=== PATIENT | female | born 1950 | race Caucasian/White ===

== ENCOUNTER → 2016-10-07 | Outpatient (CLI) | payer OTHER ==
[~2016-10-07] MED LIST: AMLO5 PO; APIX2.5 PO; APIX2.5T PO; APIX5TAB PO; BACT800T5 PO; CALC500C6 CHEW; CARV6.25 PO; CLON.5 PO; DILT60TA PO; DILT60TA33 PO; DRIS50002 PO; ERGO50000 PO; FERR325T PO; HYDR-3516 PO; LEVA750T PO; OXYGENTANK NAS.CANULA; PANT40TA3 PO; PRED20 PO; PROT40TA PO; SYMB160A INH; SYMB80AE INH; TUMS500C PO; VENTAER INH; Z.0.OXYGENDME NC
[2016-10-07 16:22] LABS: HEMOGLOBIN A1a 0.8 %; HEMOGLOBIN Ao 83.2 %; HEMOGLOBIN LA1C 2.5 %; HEMOGLOBIN P3 4.3 %
== END ==
LOC: CLAB 09:48
PROVIDERS: ATTEND Physician Assistant Medical
DX: E11.9 Type 2 diabetes mellitus without complications (principal)
CPT/HCPCS: 36415; 83036

== ENCOUNTER 2016-11-28 03:12 | Inpatient (IN) | payer MEDICAID, OTHER ==
[~2016-11-28] VITALS: Ht 157.5 cm; Wt 77.0 kg
[2016-11-28] VITALS (11 sets, daily range): BP systolic 122–190; BP diastolic 66–88; PULSE 88–121; RESP 14–23; TEMP 87.7–98.6; O2SAT 88–99
[~2016-11-28 03:12] MED LIST changes: -AMLO5 PO; -APIX2.5 PO; -APIX5TAB PO; -BACT800T5 PO; -CARV6.25 PO; -CLON.5 PO; -DILT60TA33 PO; -ERGO50000 PO; -FERR325T PO; -HYDR-3516 PO; -LEVA750T PO; -PANT40TA3 PO; -PRED20 PO; -PROT40TA PO; -SYMB160A INH; -SYMB80AE INH; -TUMS500C PO; -VENTAER INH; -Z.0.OXYGENDME NC
[2016-11-28] MEDS ORDERED: SODIUM CHLOR 0.9% 1000 ML INJ 1,000 ML IV SCH (04:02)
--- NOTE | 2016-11-28 04:09 | PD ---
HPI Chief Complaint: Bleeding Time Seen by Provider: 04:02 Travel History International Travel<30 days: No Contact w/Intl Traveler<30days: No Traveled to known affect area: No History of Present Illness HPI 66-year-old female presents to the emergency department for complaint of 3 days of rectal bleeding. Patient denies any abdominal pain. Patient has felt lightheaded. Patient has chronic shortness of breath due to COPD and is on chronic supplemental oxygen. Patient also has history of atrial fibrillation and is prescribed eloquent was. Patient is unable to identify exacerbating or alleviating factors except that she notes that when she does go to the bathroom that is when she notices a large amount of red blood per rectum. Patient denies any hematuria. Patient's had no hematemesis or coffee-ground emesis. No chest pain. Patient states no previous history of GI bleed. Patient does not take aspirin products or NSAIDs. PFSH Past Medical History Narrative Medical Atrial fibrillation renal insufficiency COPD diabetes kidney stones hysterectomy no tobacco use nursing notes reviewed Hx Anticoagulant Therapy: Yes Arthritis: Yes ([place] hands) Asthma: No Autoimmune Disease: No Cancer: No Cardiovascular Problems: Yes COPD: Yes Diabetes: Yes Patient Takes Glucophage: No Diminished Hearing: Yes (tejon) Endocrine: Yes Gastrointestinal Disorders: Yes GERD: Yes Genitourinary: Yes Hiatal Hernia: No Immune Disorder: No Kidney Stones: Yes (25 yrs ago) Musculoskeletal: Yes Neurologic: No Psychiatric: No Reproductive: No Respiratory: Yes (COPD) Immunizations Current: Yes Renal Failure: No Sleep Apnea: No Ulcer: No Past Surgical History Hysterectomy: Yes Tonsillectomy: Yes Social History Alcohol Use: No Tobacco Use: No Substance Use: No Allergies-Medications (Allergen,Severity, Reaction): Coded Allergies: Metformin (Verified Allergy, Intermediate, 11/28/16) Reported Meds & Prescriptions Reported Meds & Active Scripts Active Diltiazem (Diltiazem HCl) 60 Mg Tab 60 Mg PO QID Eliquis (Apixaban) 2.5 Mg Tab 2.5 Mg PO BID Reported Drisdol (Ergocalciferol) 50,000 Unit Cap 50,000 Units PO Q7D Oxygen tank (Oxygen) 1 Ea Tank 2 Liter STEPHANI.CANULA CONTINUOUS Oxygen Concentrator Portable Gaseous 2 L/min via Nasal Cannula Continuous For 99 months Calcium Carbonate 500 Mg Chew 500 Mg CHEW TID 500 mg calcium carbonate (200 mg elemental calcium) Review of Systems Except as stated in HPI: all other systems reviewed are Neg General / Constitutional: No: Fever, Chills HENT: No: Congestion Cardiovascular: No: Chest Pain or Discomfort Respiratory: Positive: Shortness of Breath Gastrointestinal: No: Vomiting, Diarrhea, Abdominal Pain Genitourinary: No: Dysuria, Hematuria Musculoskeletal: No: Myalgias, Arthralgias Skin: No Rash Neurologic: Positive: Weakness Psychiatric: Positive: Anxiety Hematologic/Lymphatic: Positive: Easy Bruising Physical Exam Narrative GENERAL: Well-developed well-nourished female in no acute distress no respiratory distress SKIN: Warm and dry. HEAD: Atraumatic. Normocephalic. EYES: Pupils equal and round. No scleral icterus. No injection or drainage. Mild conjunctival pallor ENT: No nasal bleeding or discharge. Mucous membranes pink and moist. NECK: Trachea midline. No JVD. CARDIOVASCULAR: Increased Regular rate and rhythm. RESPIRATORY: No accessory muscle use. Clear to auscultation. Breath sounds equal bilaterally. GASTROINTESTINAL: Abdomen soft, non-tender, nondistended. Hepatic and splenic margins not palpable. Rectal exam: No sphincter tone maroon stool Hemoccult performed MUSCULOSKELETAL: Extremities without clubbing, cyanosis, or edema. No obvious deformities. NEUROLOGICAL: Awake and alert. No obvious cranial nerve deficits. Motor grossly within normal limits. Five out of 5 muscle strength in the arms and legs. Normal speech. PSYCHIATRIC: Appropriate mood and affect; insight and judgment normal. Data Data Last Documented VS Vital Signs Date Time Temp Pulse Resp B/P Pulse Ox O2 Delivery O2 Flow Rate FiO2 11/28/16 05:00 94 18 160/78 96 Room Air 11/28/16 03:44 2 11/28/16 03:16 98.1 Orders Complete Blood Count With Diff (11/28/16 04:02) Comprehensive Metabolic Panel (11/28/16 04:02) Lipase (11/28/16 04:02) Prothrombin Time / Inr (Pt) (11/28/16 04:02) Act Partial Throm Time (Ptt) (11/28/16 04:02) Urinalysis - C+S If Indicated (11/28/16 04:02) Type And Screen (11/28/16 04:02) Chest, Single Ap (11/28/16 04:02) Ecg Monitoring (11/28/16 04:02) Iv Access Insert/Monitor (11/28/16 04:02) Oximetry (11/28/16 04:02) Ondansetron Inj (Zofran Inj) (11/28/16 04:15) Sodium Chlor 0.9% 1000 Ml Inj (Ns 1000 M (11/28/16 04:02) Sodium Chloride 0.9% Flush (Ns Flush) (11/28/16 04:15) Electrocardiogram (11/28/16 ) Pantoprazole Inj (Protonix Inj) (11/28/16 04:15) Admit Order (Ed Use Only) (11/28/16 ) ^ Saline Lock (11/28/16 05:19) Resp Oxygen Stephani C Titrat 1-4 L (11/28/16 ) ^ Notify Dr: Other (11/28/16 05:19) Sodium Chloride 0.9% Flush (Ns Flush) (11/28/16 09:00) Sodium Chloride 0.9% Flush (Ns Flush) (11/28/16 05:30) Consult Gastroenterology (11/28/16 ) Labs Laboratory Tests Test 11/28/16 04:25 White Blood Count 18.0 TH/MM3 Red Blood Count 3.48 MIL/MM3 Hemoglobin 10.5 GM/DL Hematocrit 31.4 % Mean Corpuscular Volume 90.3 FL Mean Corpuscular Hemoglobin 30.0 PG Mean Corpuscular Hemoglobin 33.2 % Concent Red Cell Distribution Width 12.8 % Platelet Count 285 TH/MM3 Mean Platelet Volume 7.7 FL Neutrophils (%) (Auto) 74.2 % Lymphocytes (%) (Auto) 17.8 % Monocytes (%) (Auto) 6.4 % Eosinophils (%) (Auto) 1.0 % Basophils (%) (Auto) 0.6 % Neutrophils # (Auto) 13.3 TH/MM3 Lymphocytes # (Auto) 3.2 TH/MM3 Monocytes # (Auto) 1.2 TH/MM3 Eosinophils # (Auto) 0.2 TH/MM3 Basophils # (Auto) 0.1 TH/MM3 CBC Comment DIFF FINAL Differential Comment Prothrombin Time 10.6 SEC Prothromb Time International 1.0 RATIO Ratio Activated Partial 25.4 SEC Thromboplast Time Sodium Level 139 MEQ/L Potassium Level 3.4 MEQ/L Chloride Level 92 MEQ/L Carbon Dioxide Level 37.1 MEQ/L Anion Gap 10 MEQ/L Blood Urea Nitrogen 22 MG/DL Creatinine 1.25 MG/DL Estimat Glomerular Filtration 43 ML/MIN Rate Random Glucose 199 MG/DL Calcium Level 8.4 MG/DL Total Bilirubin 0.2 MG/DL Aspartate Amino Transf 11 U/L (AST/SGOT) Alanine Aminotransferase 24 U/L (ALT/SGPT) Alkaline Phosphatase 97 U/L Total Protein 6.6 GM/DL Albumin 3.2 GM/DL Lipase 67 U/L Blood Type O POSITIVE Antibody Screen NEGATIVE Blood Bank Comment MDM Medical Decision Making Medical Screen Exam Complete: Yes Emergency Medical Condition: Yes Medical Record Reviewed: Yes Interpretation(s) EKG: Sinus tachycardia rate [address] elevation or injury pattern change or ectopy noted Vital Signs Date Time Temp Pulse Resp B/P Pulse Ox O2 Delivery O2 Flow Rate FiO2 11/28/16 03:44 116 23 122/66 95 Nasal Cannula 2 11/28/16 03:40 115 18 95 Nasal Cannula 2 11/28/16 03:16 98.1 121 20 177/81 88 CBC & BMP Diagram 11/28/16 04:25 Differential Diagnosis Upper GI bleed lower GI bleed Eliquis yet related bleed anemia Narrative Course GI bleed due to possible nonsteroidal exposure and cough medicine on a liquid Critical Care Narrative Aggregate critical care time was 35 minutes. Time to perform other separately billable procedures was not included in the critical care time. My time did not include minutes spent treating any other patients simultaneously or on activities that did not directly contribute to the patient's treatment. The services I provided to this patient were to treat and/or prevent clinically significant deterioration that could result in: severe anemia, hemorrhagic shock , I provided critical care services requiring my management, as noted below: Chart data review, documentation time, medication orders and management, vital sign assessments/reviewing monitor data, ordering and reviewing lab tests, ordering and interpreting/reviewing x-rays and diagnostic studies, care of the patient and discussion of the patient with the admitting physicians. Physician Communication Physician Communication Call placed to GI --Dr Yip -- will see in consultation; call placed to [facility] service dicussed with Dr Bear --admit to M/S floor Diagnosis Primary Impression: GI bleed Qualified Code: K92.2 - Gastrointestinal hemorrhage, unspecified gastrointestinal hemorrhage type Admitting Information Admitting Physician Requests: Admit Claire Gonzalez MD Nov 28, 2016 04:08
[2016-11-28] MEDS ORDERED: ONDANSETRON HCL 4 MG/2 ML VIAL IVP ONE (04:15)
[2016-11-28] MEDS ORDERED: PANTOPRAZOLE SODIUM 40 MG VIAL IV PUSH ONE (04:15)
[2016-11-28] MEDS ORDERED: SODIUM CHLORIDE 0.9% FLUSH 5 ML FLUSH IVF PRN ×2 (04:15→05:30)
--- NOTE | 2016-11-28 04:30 | RADRPT ---
EXAM DATE/TIME: 11/28/2016 04:15 [place] COMPARISON: CT PULMONARY ANGIOGRAM, January 22, 2016, 15:05. CHEST SINGLE AP, January 27, 2016, 13:29. INDICATIONS : Syncope MEDICAL HISTORY : Chronic obstructive pulmonary disease. Hypertension ARF. Hyperkalemia. Diabetes SURGICAL HISTORY : Tonsillectomy. ENCOUNTER: Initial ACUITY: 1 day PAIN SCORE: 2/10 LOCATION: Bilateral chest FINDINGS: Hyperinflation and attenuated lung markings are again seen consistent with emphysema. There is a kelli t nodule in the left upper lungs measuring 1.5 cm which likely corresponds to the spiculated mass see n on the previous CT examination. There is mild cardiomegaly. No consolidation or effusion. CONCLUSION: Left upper lung zone nodule likely corresponds to the spiculated nodule seen on a prior CT examinatio n. Emphysema. No acute findings. Abdirizak Burns MD on November 28, 2016 at 4:27 Board Certified Radiologist. This report was verified electronically.
[2016-11-28 04:37] LABS: AUTOMATED NEUTROPHIL # 13.3 TH/MM3 (1.8-7.7); BASOPHIL # 0.1 TH/MM3 (0-0.2); BASOPHIL % 0.6 % (0.0-2.0); EOSINOPHIL # 0.2 TH/MM3 (0-0.4); HEMATOCRIT 31.4 % (35.0-46.0); HEMO FLAGS DIFF FINAL; LYMPH % 17.8 % (9.0-44.0); LYMPHOCYTE # 3.2 TH/MM3 (1.0-4.8); MEAN CELL VOLUME 90.3 FL (80.0-100.0); MEAN CORPUSCULAR HGB CONC 33.2 % (32.0-36.0); MONO % 6.4 % (0.0-8.0); NEUT % 74.2 % (16.0-70.0); PLATELET COUNT 285 TH/MM3 (150-450); RED BLOOD COUNT 3.48 MIL/MM3 (4.00-5.30); RED CELL DISTRIBUTION WIDTH 12.8 % (11.6-17.2)
[2016-11-28 05:03] LABS: ALT (GPT) 24 U/L (10-53); ANION GAP 10 MEQ/L (5-15); AST (GOT) 11 U/L (15-37); BICARBONATE 37.1 MEQ/L (21.0-32.0); BLOOD UREA NITROGEN 22 MG/DL (7-18); CHLORIDE 92 MEQ/L (98-107); GLOMERULAR FILTRATION RATE 43 ML/MIN (>89); POTASSIUM 3.4 MEQ/L (3.5-5.1); SODIUM (NA) 139 MEQ/L (136-145)
[2016-11-28 05:05] LABS: ALKALINE PHOSPHATASE 97 U/L (45-117); TOTAL BILIRUBIN ADULT 0.2 MG/DL (0.2-1.0)
[2016-11-28 05:10] LABS: APTT (PATIENT) 25.4 SEC (24.3-30.1); PROTHROMBIN TIME - PATIENT 10.6 SEC (9.8-11.6)
[2016-11-28] MEDS ORDERED: MORPHINE SULFATE 4 MG/ML INJ IV PRN (05:45)
[2016-11-28] MEDS ORDERED: ACETAMINOPHEN 325 MG TAB PO PRN (05:45)
[2016-11-28] MEDS ORDERED: ONDANSETRON HCL 4 MG/2 ML VIAL IVP PRN (05:45)
[2016-11-28] MEDS ORDERED: BISACODYL 10 MG SUPP PR PRN (05:45)
[2016-11-28] MEDS ORDERED: SODIUM CHLORIDE 0.9% FLUSH 5 ML FLUSH FLUSH PRN (05:45)
--- NOTE | 2016-11-28 05:53 | HHI.HP ---
[facility] No Primary Care Physician Admission Diagnosis GI bleed on Eliquis; h/o afib; h/o copd; h/o renal insufficiency Diagnoses: (1) GI bleed Diagnosis: Principal (2) A-fib Diagnosis: Principal (3) Renal insufficiency Diagnosis: Principal (4) COPD (chronic obstructive pulmonary disease) Diagnosis: Principal Travel History International Travel<30 Days: No Contact w/Intl Traveler <30 Da: No Traveled to Known Affected Are: No History of Present Illness This is a 66-year-old female with a PMH of COPD, O2 Dependent, A-fib on Eliquis and HTN who presented to the ER w/ complaints of rectal bleeding. States symptoms have been intermittent x3 days, however today had persistent rectal bleeding. On Eliquis as above for A-fib. Denies melena or abdominal pain. On arrival, BP 177/81, HR 121, O2 sat 88% on RA, Afebrile. Currently BP 122/66, HR 116, O2 sat 95% on 2L NC. WBC 18. Hgb 10.5, previously 14.4 on 02/25/16. Hemoccult +. K+ 3.4. Creatinine 1.25, previously 1.15 on 04/23/16. CXR with left upper lung nodule seen on previous CT, COPD. Dr. Haas consulted by ER physician, will evaluate for likely intervention w/ EGD/Colonoscopy. Review of Systems ROS: 14 point review of systems otherwise negative. Past Family Social History Past Medical History PMH: COPD, O2 Dependent, A-fib on Eliquis and HTN Past Surgical History PAST SURGICAL HISTORY: Hysterectomy, Tonsillectomy Allergies: Coded Allergies: Metformin (Verified Allergy, Intermediate, 11/28/16) Family History PAST FAMILY HISTORY: Reviewed. No h/o DM or CAD Social History PAST SOCIAL HISTORY: Negative for alcohol, tobacco or drugs. Physical Exam Vital Signs Vital Signs Date Time Temp Pulse Resp B/P Pulse Ox O2 Delivery O2 Flow Rate FiO2 11/28/16 03:44 116 23 122/66 95 Nasal Cannula 2 11/28/16 03:40 115 18 95 Nasal Cannula 2 11/28/16 03:16 98.1 121 20 177/81 88 Physical Exam PE: GENERAL: Pleasant middle-aged female in no acute distress. HEENT: PERRLA, EOMI. No scleral icterus or conjunctival pallor. No lid lag or facial droop. CARDIOVASCULAR: Regular rate and rhythm. No obvious murmurs to auscultation. No chest tenderness to palpation. RESPIRATORY: No obvious rhonchi or wheezing. Clear to auscultation. Breath sounds equal bilaterally. GASTROINTESTINAL: Abdomen soft, non-tender, nondistended. BS normal. MUSCULOSKELETAL: Extremities without clubbing, cyanosis, or edema. No obvious deformities. NEUROLOGICAL: Awake, alert and oriented x4. No focal neurologic deficits. Moving both upper and lower extremities spontaneously. Laboratory Laboratory Tests Test 11/28/16 04:25 White Blood Count 18.0 Red Blood Count 3.48 Hemoglobin 10.5 Hematocrit 31.4 Mean Corpuscular Volume 90.3 Mean Corpuscular Hemoglobin 30.0 Mean Corpuscular Hemoglobin 33.2 Concent Red Cell Distribution Width 12.8 Platelet Count 285 Mean Platelet Volume 7.7 Neutrophils (%) (Auto) 74.2 Lymphocytes (%) (Auto) 17.8 Monocytes (%) (Auto) 6.4 Eosinophils (%) (Auto) 1.0 Basophils (%) (Auto) 0.6 Neutrophils # (Auto) 13.3 Lymphocytes # (Auto) 3.2 Monocytes # (Auto) 1.2 Eosinophils # (Auto) 0.2 Basophils # (Auto) 0.1 CBC Comment DIFF FINAL Differential Comment Prothrombin Time 10.6 Prothromb Time International 1.0 Ratio Activated Partial 25.4 Thromboplast Time Sodium Level 139 Potassium Level 3.4 Chloride Level 92 Carbon Dioxide Level 37.1 Anion Gap 10 Blood Urea Nitrogen 22 Creatinine 1.25 Estimat Glomerular Filtration 43 Rate Random Glucose 199 Calcium Level 8.4 Total Bilirubin 0.2 Aspartate Amino Transf 11 (AST/SGOT) Alanine Aminotransferase 24 (ALT/SGPT) Alkaline Phosphatase 97 Total Protein 6.6 Albumin 3.2 Lipase 67 Blood Type O POSITIVE Antibody Screen NEGATIVE Blood Bank Comment Result Diagram: 11/28/1642411/28/16424 Assessment and Plan Problem List: (1) GI bleed ICD Code: K92.2 Status: Acute (2) A-fib ICD Code: I48.91 Status: Acute (3) Renal insufficiency ICD Code: N28.9 Status: Acute (4) COPD (chronic obstructive pulmonary disease) ICD Code: J44.9 Status: Acute Assessment and Plan A/P: 1. GI Bleed: acute onset of rectal bleeding x4 days, Hemoccult +, maroon stool on exam, Hgb 10.5, previously 14.4 on 02/25/16. Dr. Haas consulted by ER physician, will evaluate in am for likely intervention. Hemodynamically stable. Repeat Hgb/Hct. Telemetry. 2. A-fib: Chronic. On Eliquis, will hold for acute GI Bleed. Resume home Diltiazem. 3. COPD: Chronic Respiratory Failure, O2 Dependent. Stable. Continue O2. DuoNeb prn as needed. 4. Renal Insufficiency: Chronic. Creatinine 1.25, previous and 1.15 on . U/a pending. IVF for hydration, repeat labs in am. 5. DVT Prophylaxis: Pharmacologic contraindication in light of GI Bleed. 6. Social work for d/c planning as needed. 7. Case discussed w/ ER physician at length. Physician Certification 2 Midnight Certification Type: Admission for Inpatient Services Order for Inpatient Services The services are ordered in accordance with Medicare regulations or non- Medicare payer requirements, as applicable. In the case of services not specified as inpatient-only, they are appropriately provided as inpatient services in accordance with the 2-midnight benchmark. Estimated LOS (days): 2 days is the estimated time the patient will need to remain in the hospital, assuming treatment plan goals are met and no additional complications. Post-Hospital Plan: Not yet determined Problem Qualifiers (1) GI bleed: Qualified Code: K92.2 - Gastrointestinal hemorrhage, unspecified gastrointestinal hemorrhage type Luciana Bear MD Nov 28, 2016 05:53
[2016-11-28] MEDS: SODIUM CHLOR 0.9% 1000 ML INJ 1,000 ML IV SCH (06:46)
[2016-11-28 07:40] LABS: BACTERIA, URINE MANY /hpf; BLOOD, URINE LARGE (NEG); COMMENT (UR) CULTURE INDICATED; CULTURE IF INDICATED CULTURE INDICATED; GLUCOSE,URINE NEG (NEG); HYALINE CAST, URINE 7 /lpf (RARE); KETONE, URINE NEG (NEG); NITRITE,URINE NEG (NEG); SQUAMOUS EPITHELIAL CELL URINE 12 /hpf (0-5); TRANSITIONAL EPI CELLS, URINE 1 /hpf; URINE COLOR YELLOW (YELLW/STRAW)
[2016-11-28] MEDS: SODIUM CHLORIDE 0.9% FLUSH 5 ML FLUSH FLUSH SCH ×2 (09:00→20:27)
[2016-11-28] MEDS ORDERED: SODIUM CHLORIDE 0.9% FLUSH 5 ML FLUSH IVF SCH (09:00)
[2016-11-28] MEDS: DILTIAZEM HCL 60 MG TAB PO SCH ×4 (10:28→20:26)
--- NOTE | 2016-11-28 14:34 | EKG ---
Date Performed: 11/28/2016 Time Performed: 07:10:06 PTAGE: 66 years EKG: SINUS TACHYCARDIA WITH OCCASIONAL SUPRAVENTRICULAR PREMATURE COMPLEXES NONSPECIFIC ST & T-[address] AVE ABNORMALITY POSSIBLE RIGHT ATRIAL ABNORMALITY ABNORMAL RHYTHM ECG PREVIOUS TRACING : 02/24/2016 20.19 Compared to previous tracing, nonspecific ST/T abnormality is now evident, PACs are now present. DOCTOR: Saul Porras Interpretating Date/Time 11/28/2016 14:32:15
--- NOTE | 2016-11-28 17:08 | PD.CONS ---
HPI History of Present Illness This is a 66 year old female who came to the ER for evaluation of rectal bleeding. She has a hx of COPD and is on O2 2.5L via n/c. She also has a hx of atrial fibrillation and takes Eliquis for anticoagulation. She started having rectal bleeding about 3 days ago. She reports a large amount of bright red blood both mixed within the stool and also sometimes independently from stool. She states that she has had several episodes per day for the last 3 days. There are no aggravating or alleviating factors. She denies any constipation, diarrhea, or rectal pain. She does have some mild nausea without vomiting. She does not have any abdominal pain. She has never had any GI bleeding in the past. She denies any hx of PUD or known diverticulosis. She has never had an egd/colonoscopy in the past. There is no family hx of esophageal, gastric, or colorectal cancer. PFSH Past Medical History COPD, O2 Dependent on 2.5 L at home A-fib on Eliquis HTN Past Surgical History Hysterectomy Tonsillectomy Coded Allergies: Metformin (Verified Allergy, Intermediate, 11/28/16) Medications Allergies Coded Allergies Type Severity Reaction Last Updated Verified Metformin Allergy Intermediate 11/28/16 Yes Active Scripts Medications Dose Route/Sig Days Date Category Dose Instructions Drisdol (Ergocalciferol) 50,000 Unit Cap 50,000 Units PO Q7D 11/04/16 Reported Oxygen tank (Oxygen) 1 Ea Tank 2 Liter STEPHANI.CANULA CONTINUOUS 11/04/16 Reported Oxygen Concentrator Portable Gaseous 2 L/min via Nasal Cannula Continuous For 99 months Calcium Carbonate 500 Mg Chew 500 Mg CHEW TID 11/04/16 Reported 500 mg calcium carbonate (200 mg elemental calcium) Diltiazem (Diltiazem HCl) 60 Mg Tab 60 Mg PO QID 10/29/16 Rx Eliquis (Apixaban) 2.5 Mg Tab 2.5 Mg PO BID 09/03/16 Rx Family History Denies any family hx of esophageal, gastric, or colorectal cancer. Social History Quit smoking 3 years ago, prior to that smoked 1-2 PPD x ~30 years. No ETOH. Review of Systems Constitutional: DENIES: Fatigue, Weight loss, Change in appetite Respiratory: COMPLAINS OF: Shortness of breath, DENIES: Cough Cardiovascular: DENIES: Chest pain Gastrointestinal: COMPLAINS OF: Bloody stools, Nausea, DENIES: Abdominal pain , Black stools, Constipation, Diarrhea, Vomiting, Swelling of Abdomen, Hematemesis Integumentary: DENIES: Abnormal pigmentation Hematologic/lymphatic: DENIES: Bruising Neurologic: DENIES: Headache Psychiatric: DENIES: Confusion GI Exam Vitals I&O Vital Signs Date Time Temp Pulse Resp B/P Pulse Ox O2 Delivery O2 Flow Rate FiO2 11/28/16 16:15 98.1 107 20 190/88 91 11/28/16 12:05 98.6 88 16 153/70 90 11/28/16 09:13 87.7 112 14 135/87 95 11/28/16 06:50 94 18 173/78 98 Room Air 11/28/16 05:40 99 Nasal Cannula 2.00 11/28/16 05:00 94 18 160/78 96 Room Air 11/28/16 03:44 116 23 122/66 95 Nasal Cannula 2 11/28/16 03:40 115 18 95 Nasal Cannula 2 11/28/16 03:16 98.1 121 20 177/81 88 Imaging Last Impressions Chest X-Ray 11/28/16 0402 Signed Impressions: Service Date/Time: Monday, November 28, 2016 04:15 - CONCLUSION: Left upper lung zone nodule likely corresponds to the spiculated nodule seen on a prior CT examination. Emphysema. No acute findings. Abdirizak Burns MD Laboratory Test 11/28/16 11/28/16 04:25 07:00 White Blood Count 18.0 TH/MM3 Red Blood Count 3.48 MIL/MM3 Hemoglobin 10.5 GM/DL Hematocrit 31.4 % Mean Corpuscular Volume 90.3 FL Mean Corpuscular Hemoglobin 30.0 PG Mean Corpuscular Hemoglobin 33.2 % Concent Red Cell Distribution Width 12.8 % Platelet Count 285 TH/MM3 Mean Platelet Volume 7.7 FL Neutrophils (%) (Auto) 74.2 % Lymphocytes (%) (Auto) 17.8 % Monocytes (%) (Auto) 6.4 % Eosinophils (%) (Auto) 1.0 % Basophils (%) (Auto) 0.6 % Neutrophils # (Auto) 13.3 TH/MM3 Lymphocytes # (Auto) 3.2 TH/MM3 Monocytes # (Auto) 1.2 TH/MM3 Eosinophils # (Auto) 0.2 TH/MM3 Basophils # (Auto) 0.1 TH/MM3 CBC Comment DIFF FINAL Differential Comment Prothrombin Time 10.6 SEC Prothromb Time International 1.0 RATIO Ratio Activated Partial 25.4 SEC Thromboplast Time Sodium Level 139 MEQ/L Potassium Level 3.4 MEQ/L Chloride Level 92 MEQ/L Carbon Dioxide Level 37.1 MEQ/L Anion Gap 10 MEQ/L Blood Urea Nitrogen 22 MG/DL Creatinine 1.25 MG/DL Estimat Glomerular Filtration 43 ML/MIN Rate Random Glucose 199 MG/DL Calcium Level 8.4 MG/DL Total Bilirubin 0.2 MG/DL Aspartate Amino Transf 11 U/L (AST/SGOT) Alanine Aminotransferase 24 U/L (ALT/SGPT) Alkaline Phosphatase 97 U/L Total Protein 6.6 GM/DL Albumin 3.2 GM/DL Lipase 67 U/L Blood Type O POSITIVE Antibody Screen NEGATIVE Blood Bank Comment Urine Color YELLOW Urine Turbidity HAZY Urine pH 6.0 Urine Specific [place] 1.015 Urine Protein 30 mg/dL Urine Glucose (UA) NEG mg/dL Urine Ketones NEG mg/dL Urine Occult Blood LARGE Urine Nitrite NEG Urine Bilirubin NEG Urine Urobilinogen LESS THAN 2.0 MG/DL Urine Leukocyte Esterase LARGE Urine RBC 6 /hpf Urine WBC 65 /hpf Urine Squamous Epithelial 12 /hpf Cells Urine Transitional Epithelial 1 /hpf Cells Urine Bacteria MANY /hpf Urine Hyaline Casts 7 /lpf Microscopic Urinalysis Comment CULTURE INDICATED Date/Time Procedure Status Source Growth 11/28/16 07:00 Urine Culture Received Urine Random Urine Pending Physical Examination HEENT: Normocephalic; atraumatic; no jaundice. Throat is clear. NECK: Neck is supple, no JVD, no lymphadenopathy. CHEST: CTA, diminished. CARDIAC: Irregular ABDOMEN: Soft, nondistended, nontender; no hepatosplenomegaly; bowel sounds are present in all four quadrants. EXTREMITIES: No clubbing, cyanosis, or edema. SKIN: Normal; no rash; no jaundice. F[employer]: No focal deficits; alert and oriented times three. Assessment and Plan Plan ASSESSMENT: - GIB with BRBPR, both mixed within the stool and independent from stool x 3 days. Mild nausea, but no other GI symptoms such as pain, diarrhea, constipation. No prior hx of GIB or PUD. Does not take NSAIDs. Is on Eliquis at home for Atrial fibrillation. HH 10.5/31.4. Never had an EGD/Colonoscopy - Anemia, acute blood loss. HH 10.5/31.4. - Leukocytosis. WBC 18.0. Denies any abdominal pain. - Nausea, mild, no vomiting. Add PPI - Atrial fibrillation, Eliquis on hold - HTN, COPD per primary. Of note patient is on O2 2.5 L via n/c at home PLAN: - Plan for egd/colonoscopy in am - Obtain consents - Clear liquids tomorrow - NPO after MN Wednesday night - Golytely prep tomorrow - Add PPI - Hold Eliquis - Monitor HH - Transfuse as necessary - CBC in am - Supportive care - Further recommendations to follow based on results of above - Pt seen and examined by Dr. Haas and myself and this note is written on his behalf eBtty Cook Nov 28, 2016 17:07
[2016-11-28] MEDS: PANTOPRAZOLE SODIUM 40 MG VIAL IV PUSH SCH (18:09)
[2016-11-29] VITALS (9 sets, daily range): BP systolic 138–192; BP diastolic 67–90; PULSE 74–102; RESP 18–20; TEMP 97.6–98.8; O2SAT 92–99
[2016-11-29] MEDS: SODIUM CHLOR 0.9% 1000 ML INJ 1,000 ML IV SCH ×4 (01:39→21:39)
[2016-11-29 08:07] LABS: AUTOMATED NEUTROPHIL # 8.3 TH/MM3 (1.8-7.7); BASOPHIL # 0.1 TH/MM3 (0-0.2); BASOPHIL % 0.4 % (0.0-2.0); EOSINOPHIL # 0.3 TH/MM3 (0-0.4); EOSINOPHIL % 2.2 % (0.0-4.0); HEMATOCRIT 29.5 % (35.0-46.0); HEMO FLAGS DIFF FINAL; LYMPH % 29.4 % (9.0-44.0); MEAN CELL VOLUME 90.7 FL (80.0-100.0); MEAN CORPUSCULAR HEMOGLOBIN 30.2 PG (27.0-34.0); MEAN CORPUSCULAR HGB CONC 33.4 % (32.0-36.0); MONO % 7.1 % (0.0-8.0); NEUT % 60.9 % (16.0-70.0); PLATELET COUNT 267 TH/MM3 (150-450); RED BLOOD COUNT 3.25 MIL/MM3 (4.00-5.30); RED CELL DISTRIBUTION WIDTH 12.8 % (11.6-17.2); WHITE BLOOD COUNT 13.6 TH/MM3 (4.0-11.0)
[2016-11-29 08:32] LABS: ALKALINE PHOSPHATASE 92 U/L (45-117); ALT (GPT) 21 U/L (10-53); ANION GAP 9 MEQ/L (5-15); AST (GOT) 15 U/L (15-37); BICARBONATE 36.4 MEQ/L (21.0-32.0); BLOOD UREA NITROGEN 11 MG/DL (7-18); CHLORIDE 94 MEQ/L (98-107); GLOMERULAR FILTRATION RATE 73 ML/MIN (>89); SODIUM (NA) 139 MEQ/L (136-145); TOTAL BILIRUBIN ADULT 0.5 MG/DL (0.2-1.0)
[2016-11-29 08:34] LABS: POTASSIUM 2.6 MEQ/L (3.5-5.1)
[2016-11-29] MEDS: SODIUM CHLORIDE 0.9% FLUSH 5 ML FLUSH FLUSH SCH ×2 (09:00→20:46)
[2016-11-29] MEDS: DILTIAZEM HCL 60 MG TAB PO SCH ×4 (09:12→20:45)
--- NOTE | 2016-11-29 10:09 | HHI.PR ---
Subjective Remarks Follow up for GI bleed, hypokalemia. Ms. Snyder is doing well. Eating her breakfast. No acute concerns. No fever, chills. Objective Vitals Vital Signs Date Time Temp Pulse Resp B/P Pulse Ox O2 Delivery O2 Flow Rate FiO2 11/29/16 08:07 97.6 102 18 93 11/29/16 08:00 170/70 11/29/16 07:18 95 Nasal Cannula 1.00 11/29/16 04:13 98.0 89 20 154/90 97 11/29/16 00:18 98.0 100 20 192/84 95 11/28/16 21:02 97.4 102 20 168/76 95 11/28/16 20:00 106 11/28/16 16:15 98.1 107 20 190/88 91 11/28/16 12:05 98.6 88 16 153/70 90 Result Diagram: 11/29/16 0714 11/29/16 0714 Imaging Last Impressions Chest X-Ray 11/28/16 0402 Signed Impressions: Service Date/Time: Monday, November 28, 2016 04:15 - CONCLUSION: Left upper lung zone nodule likely corresponds to the spiculated nodule seen on a prior CT examination. Emphysema. No acute findings. Abdirizak Burns MD Objective Remarks GENERAL: AOX 3, NAD SKIN: Warm and dry. HEAD: Normocephalic. EYES: No scleral icterus. No injection or drainage. NECK: Supple, trachea midline. No JVD or lymphadenopathy. CARDIOVASCULAR: Irreg Irreg with tachycardia without murmurs, gallops, or rubs. RESPIRATORY: Breath sounds equal bilaterally. No accessory muscle use. GASTROINTESTINAL: Abdomen soft, non-tender, nondistended. MUSCULOSKELETAL: No cyanosis, or edema. BACK: Nontender without obvious deformity. No CVA tenderness. Procedures None. A/P Problem List: (1) GI bleed ICD Code: K92.2 Status: Acute (2) A-fib ICD Code: I48.91 Status: Acute (3) HTN (hypertension) ICD Code: I10 Status: Acute (4) JEFF (acute kidney injury) ICD Code: N17.9 Status: Acute (5) COPD (chronic obstructive pulmonary disease) ICD Code: J44.9 Status: Acute Assessment and Plan Ms. Snyder is a 66-year-old female with a PMH of COPD, O2 Dependent, A-fib on Eliquis and HTN who presented to the ER on 11/28/2016 w/ complaints of rectal bleeding. Her symptoms have been intermittent x3 days prior to this hospitalization. Hemoccult +, maroon stool on exam, Hgb 10.5, previously 14.4 on 02/25/16. Apixaban held due to GI bleed. GI consulted. - GI bleed - Hgb 10.5 --> 9.8. - EGD/Colonoscopy planned for 11/30/2016. - If negative and patient is stable, we could potentially discharge patient on 11/30/2016. - Chronic Atrial fibrillation - [id number] score is probably 2 (female, HTN). Patient was not on any BP meds at home, however. - Apixaban on hold. - Currently heart rate is around 100. Continue Cardizem 60mg QID. - Will start Carvedilol 6.25mg Q12hrs for both Afib and BP. - Hypertension - Will start Amlodipine 5mg Qday and Carvedilol 6.25mg BID - May need to adjust Amlodipine. - Acute kidney injury - resolved. Creatinine 1.25 --> 0.97. - Hypokalemia - K+ 2.6 today. - Hypomagnesemia - Mg 1.7. - checked Mg level which is 1.7. Will give 2 g of Mag sulfate. - Replace potassium with IV KCL 20mEq X 2 this morning and 20mEQ X 2 in the afternoon. - BMP, H&H in the AM. Full code. SCDs. Problem Qualifiers (1) GI bleed: Qualified Code: K92.2 - Gastrointestinal hemorrhage, unspecified gastrointestinal hemorrhage type Ebony Mena DO Nov 29, 2016 10:09 am
[2016-11-29] MEDS: CARVEDILOL 6.25 MG TAB PO SCH ×2 (11:12→20:45)
[2016-11-29] MEDS: amLODIPine BESYLATE 5 MG TAB PO SCH (11:12)
[2016-11-29] MEDS: POTASSIUM CHLOR 20 MEQ PREMIX 100 ML IV SCH ×4 (11:14→20:44)
[2016-11-29] MEDS: MAGNESIUM SULFATE 1 GM PREMIX 100 ML IV SCH ×2 (15:38→16:46)
[2016-11-29] MEDS ORDERED: PEG (High)/E-LYTE SOLN 4000 ML BTL PO ONE (16:00)
[2016-11-29] MEDS: PANTOPRAZOLE SODIUM 40 MG VIAL IV PUSH SCH (18:06)
[2016-11-30] VITALS (9 sets, daily range): BP systolic 123–150; BP diastolic 48–72; PULSE 70–80; RESP 18–21; TEMP 97.6–98; O2SAT 93–99
[2016-11-30 04:38] LABS: HEMATOCRIT 24.7 % (35.0-46.0); REVIEW FLAG FINAL
[2016-11-30 05:07] LABS: BICARBONATE 34.4 MEQ/L (21.0-32.0)
[2016-11-30 05:08] LABS: POTASSIUM 3.4 MEQ/L (3.5-5.1)
[2016-11-30] MEDS: DILTIAZEM HCL 60 MG TAB PO SCH ×4 (08:34→20:52)
[2016-11-30] MEDS: amLODIPine BESYLATE 5 MG TAB PO SCH (08:34)
[2016-11-30] MEDS: ACETAMINOPHEN/HYDROcodone 325 MG/5 MG TAB PO PRN (08:34)
[2016-11-30] MEDS: CARVEDILOL 6.25 MG TAB PO SCH ×2 (08:34→20:52)
[2016-11-30] MEDS: SODIUM CHLOR 0.9% 1000 ML INJ 1,000 ML IV SCH ×2 (08:37→17:39)
[2016-11-30] MEDS: SODIUM CHLORIDE 0.9% FLUSH 5 ML FLUSH FLUSH SCH ×2 (08:37→20:51)
[2016-11-30] MEDS ORDERED: PROPOFOL 200 MG/20 ML AMP IV ONE (11:33)
--- NOTE | 2016-11-30 12:00 | PD.PROCEDR ---
GI Procedure REFERRING PHYSICIAN BLADEMAR CARVALHO PERFORMED EGD with biopsy followed by colonoscopy with snare polypectomy INDICATION FOR PROCEDURE Anemia GI bleed PROCEDURE: The procedure, risks and benefits were discussed with Ms. Snyder and informed consent was obtained. Anesthesia sedated her with Diprivan. She was placed in the left lateral decubitus position. EGD: The Pentax videoscope was introduced through the oropharynx and advanced to the second portion of the duodenum under direct visualization. Retroflexion was performed in the stomach. FINDINGS: The esophagus this was normal The stomach this was normal The duodenum this was normal random biopsies were taken for further evaluation Colonoscopy: The Pentax videoscope was introduced through the rectum and advanced to cecum where the ileocecal valve and appendiceal orifice were identified. Retroflexion was performed in the rectum. Colonic prep was fair FINDINGS: Colonic withdrawal time 9 minutes as the scope was slowly withdrawn colonic mucosa was carefully inspected the patient was noted to have a sessile polyp in the distal transverse colon this was excised using cold snare technique this was retrieved for further evaluation the patient was noted to have moderate diverticulosis throughout the colon with severe diverticulosis of the sigmoid retroflexion in the rectum was unremarkable cells rectal examination ESTIMATED BLOOD LOSS: None SPECIMENS REMOVED: Duodenal and colonic biopsies COMPLICATIONS: None IMPRESSION: Normal EGD Colon polyp Diverticulosis PLAN: Await biopsy Advanced diet Supportive care Colonoscopy in 5 years Valentino Riddle MD Nov 30, 2016 12:00
--- NOTE | 2016-11-30 15:55 | HHI.PR ---
Subjective Remarks Follow up for GI bleed. Ms. Snyder is doing well. No acute concerns. She has not had any further GI bleed. Discussed with GI. We will repeat CBC in the AM - if no further drop in Hgb, we will discharge patient home in the morning. Objective Vitals Vital Signs Date Time Temp Pulse Resp B/P Pulse Ox O2 Delivery O2 Flow Rate FiO2 11/30/16 15:51 77 18 150/70 95 11/30/16 12:10 63 18 106/54 100 11/30/16 12:01 66 17 101/59 100 11/30/16 11:54 98.2 65 18 106/54 100 11/30/16 11:01 97.6 80 18 145/65 93 11/30/16 10:17 77 11/30/16 09:49 20 11/30/16 08:17 97 Nasal Cannula 2.00 11/30/16 07:46 97.6 80 18 145/65 93 11/30/16 00:00 98.0 74 21 134/72 99 11/29/16 20:00 76 11/29/16 20:00 98.8 74 18 138/84 98 11/29/16 19:10 99 2.00 11/29/16 16:00 98.3 85 18 145/69 97 I/O 11/29/16 11/29/16 11/29/16 11/30/16 11/30/16 11/30/16 07:00 15:00 23:00 07:00 15:00 23:00 Intake Total 1380 ml 2095 ml Balance 1380 ml 2095 ml Intake Oral 480 ml IV Total 900 ml 1795 ml Other 300 ml # Voids 3 7 # Bowel Movements 5 Result Diagram: 11/30/16 0348 11/30/16 0348 Objective Remarks GENERAL: AOX 3, NAD SKIN: Warm and dry. HEAD: Normocephalic. EYES: No scleral icterus. No injection or drainage. NECK: Supple, trachea midline. No JVD or lymphadenopathy. CARDIOVASCULAR: Irreg Irreg with tachycardia without murmurs, gallops, or rubs. RESPIRATORY: Breath sounds equal bilaterally. No accessory muscle use. GASTROINTESTINAL: Abdomen soft, non-tender, nondistended. MUSCULOSKELETAL: No cyanosis, or edema. BACK: Nontender without obvious deformity. No CVA tenderness. Procedures EGD, Colonoscopy. A/P Problem List: (1) GI bleed ICD Code: K92.2 Status: Acute (2) A-fib ICD Code: I48.91 Status: Acute (3) HTN (hypertension) ICD Code: I10 Status: Acute (4) JEFF (acute kidney injury) ICD Code: N17.9 Status: Acute (5) COPD (chronic obstructive pulmonary disease) ICD Code: J44.9 Status: Acute Assessment and Plan Ms. Snyder is a 66-year-old female with a PMH of COPD, O2 Dependent, A-fib on Eliquis and HTN who presented to the ER on 11/28/2016 w/ complaints of rectal bleeding. Her symptoms have been intermittent x3 days prior to this hospitalization. Hemoccult +, maroon stool on exam, Hgb 10.5, previously 14.4 on 02/25/16. Apixaban held due to GI bleed. GI consulted. - GI bleed - Hgb 10.5 --> 9.8 --> 8.2. - EGD/Colonoscopy 11/30/2016 -- No obvious GI bleed noted. Diverticulosis was found. - CBC in the AM. - Chronic Atrial fibrillation - [id number] score is probably 2 (female, HTN). - Apixaban on hold. - Currently heart rate is around 100. Continue Cardizem 60mg QID. - Continue Carvedilol 6.25mg Q12hrs for both Afib and BP. - Discussed at length regarding role of Apixaban and rate control medications for Afib. - Hypertension - Continue Amlodipine 5mg Qday and Carvedilol 6.25mg BID - May need to adjust Amlodipine dosing. - Acute kidney injury - resolved. Creatinine 1.25 --> 0.97. - Hypokalemia - K+ 2.6 --> 3.4 - Hypomagnesemia - Mg 1.7 - Received IV Magnesium sulfate and IV KCL on 11/29/2016. Full code. SCDs. Problem Qualifiers (1) GI bleed: Qualified Code: K92.2 - Gastrointestinal hemorrhage, unspecified gastrointestinal hemorrhage type Ebony Mena DO Nov 30, 2016 15:55
[2016-11-30] MEDS: PANTOPRAZOLE SODIUM 40 MG VIAL IV PUSH SCH (18:24)
[2016-12-01] MEDS: SODIUM CHLOR 0.9% 1000 ML INJ 1,000 ML IV SCH (03:39)
[2016-12-01 03:51] VITALS: BP 156/77; PULSE 118; RESP 21; TEMP 98.8; O2SAT 98
[2016-12-01] MEDS: ACETAMINOPHEN/HYDROcodone 325 MG/5 MG TAB PO PRN ×2 (03:58→09:00)
[2016-12-01 04:44] LABS: HEMATOCRIT 23.2 % (35.0-46.0); MEAN CORPUSCULAR HEMOGLOBIN 31.5 PG (27.0-34.0); MEAN CORPUSCULAR HGB CONC 34.2 % (32.0-36.0); PLATELET COUNT 282 TH/MM3 (150-450); RED BLOOD COUNT 2.52 MIL/MM3 (4.00-5.30); RED CELL DISTRIBUTION WIDTH 13.1 % (11.6-17.2); REVIEW FLAG FINAL; WHITE BLOOD COUNT 13.2 TH/MM3 (4.0-11.0)
[2016-12-01 07:53] VITALS: BP 156/66; PULSE 76; RESP 18; TEMP 96.8; O2SAT 98
[2016-12-01] MEDS: CARVEDILOL 6.25 MG TAB PO SCH (08:59)
[2016-12-01] MEDS: SODIUM CHLORIDE 0.9% FLUSH 5 ML FLUSH FLUSH SCH (09:00)
[2016-12-01] MEDS: DILTIAZEM HCL 60 MG TAB PO SCH (09:00)
[2016-12-01] MEDS: amLODIPine BESYLATE 5 MG TAB PO SCH (09:00)
[2016-12-01] MEDS ORDERED: SULFAMETHOXAZOLE-TRIMETHOPRIM DS 800-160 MG TAB PO SCH (10:00)
[2016-12-01] MEDS ORDERED: BACT800T5 PO (10:48)
[2016-12-01] MEDS ORDERED: AMLO5 PO (10:48)
[2016-12-01] MEDS ORDERED: PROT40TA PO (10:48)
[2016-12-01] MEDS ORDERED: CARV6.25 PO (10:48)
[2016-12-01] MEDS ORDERED: HYDR-3516 PO (10:48)
[2016-12-01] MEDS ORDERED: FERR325T PO (10:49)
--- NOTE | 2016-12-01 10:53 | HHI.DS ---
Discharge Summary Admission Date Nov 28, 2016 at 5:22 am Discharge Date: Dec 01, 2016 Admitting Diagnosis GI bleed on Eliquis; h/o afib; h/o copd; h/o renal insufficiency (1) GI bleed ICD Code: K92.2 Diagnosis: Principal (2) A-fib ICD Code: I48.91 Diagnosis: Principal (3) HTN (hypertension) ICD Code: I10 (4) JEFF (acute kidney injury) ICD Code: N17.9 (5) COPD (chronic obstructive pulmonary disease) ICD Code: J44.9 (6) UTI (urinary tract infection) ICD Code: N39.0 Procedures EGD, Colonoscopy. Brief History - From Admission This is a 66-year-old female with a PMH of COPD, O2 Dependent, A-fib on Eliquis and HTN who presented to the ER w/ complaints of rectal bleeding. States symptoms have been intermittent x3 days, however today had persistent rectal bleeding. On Eliquis as above for A-fib. Denies melena or abdominal pain. On arrival, BP 177/81, HR 121, O2 sat 88% on RA, Afebrile. Currently BP 122/66, HR 116, O2 sat 95% on 2L NC. WBC 18. Hgb 10.5, previously 14.4 on 02/25/16. Hemoccult +. K+ 3.4. Creatinine 1.25, previously 1.15 on 04/23/16. CXR with left upper lung nodule seen on previous CT, COPD. Dr. Haas consulted by ER physician, will evaluate for likely intervention w/ EGD/Colonoscopy. CBC/BMP: 12/01/16 0315 11/30/16 0348 Significant Findings Laboratory Tests Test 11/29/16 11/30/16 12/01/16 07:14 03:48 03:15 White Blood Count 13.6 TH/MM3 13.2 TH/MM3 (4.0-11.0) (4.0-11.0) Red Blood Count 3.25 MIL/MM3 2.52 MIL/MM3 (4.00-5.30) (4.00-5.30) Hemoglobin 9.8 GM/DL 8.2 GM/DL 7.9 GM/DL (11.6-15.3) (11.6-15.3) (11.6-15.3) Hematocrit 29.5 % 24.7 % 23.2 % (35.0-46.0) (35.0-46.0) (35.0-46.0) Neutrophils # (Auto) 8.3 TH/MM3 (1.8-7.7) Monocytes # (Auto) 1.0 TH/MM3 (0-0.9) Potassium Level 2.6 MEQ/L 3.4 MEQ/L (3.5-5.1) (3.5-5.1) Chloride Level 94 MEQ/L 97 MEQ/L (98-107) (98-107) Carbon Dioxide Level 36.4 MEQ/L 34.4 MEQ/L (21.0-32.0) (21.0-32.0) Estimat Glomerular Filtration 73 ML/MIN (>89) 86 ML/MIN (>89) Rate Random Glucose 151 MG/DL 135 MG/DL (74-106) (74-106) Calcium Level 8.2 MG/DL 8.0 MG/DL (8.5-10.1) (8.5-10.1) Imaging Last Impressions Chest X-Ray 11/28/16 0402 Signed Impressions: Service Date/Time: Monday, November 28, 2016 04:15 - CONCLUSION: Left upper lung zone nodule likely corresponds to the spiculated nodule seen on a prior CT examination. Emphysema. No acute findings. Abdirizak Burns MD PE at Discharge GENERAL: AOX 3, NAD SKIN: Warm and dry. HEAD: Normocephalic. EYES: No scleral icterus. No injection or drainage. NECK: Supple, trachea midline. No JVD or lymphadenopathy. CARDIOVASCULAR: Irreg Irreg with tachycardia without murmurs, gallops, or rubs. RESPIRATORY: Breath sounds equal bilaterally. No accessory muscle use. GASTROINTESTINAL: Abdomen soft, non-tender, nondistended. MUSCULOSKELETAL: No cyanosis, or edema. BACK: Nontender without obvious deformity. No CVA tenderness. Pt update on day of discharge Ms. Snyder is doing well. No further GI bleed. No fever, chills. Denies any dysuria, hematuria but reports increased urinary frequency. Hospital Course Ms. Snyder is a 66-year-old female with a PMH of COPD, O2 Dependent, A-fib on Eliquis and HTN who presented to the ER on 11/28/2016 w/ complaints of rectal bleeding. Her symptoms have been intermittent x3 days prior to this hospitalization. Hemoccult +, maroon stool on exam, Hgb 10.5, previously 14.4 on 02/25/16. Apixaban held due to GI bleed. GI consulted. - GI bleed - Hgb 10.5 --> 9.8 --> 8.2 --> 7.9. - EGD/Colonoscopy 11/30/2016 -- No obvious GI bleed noted. Diverticulosis was found. - Discussed with GI - okay to discharge patient home with 2 week follow up in the office. - Chronic Atrial fibrillation - [id number] score is probably 2 (female, HTN). - Apixaban on hold. - Currently heart rate is around 100. Continue Cardizem 60mg QID. - Continue Carvedilol 6.25mg Q12hrs for both Afib and BP. - Discussed with GI - Patient can re-start Apixaban today. - Hypertension - Continue Amlodipine 5mg Qday and Carvedilol 6.25mg BID - Acute kidney injury - resolved. Creatinine 1.25 --> 0.97. - Hypokalemia - K+ 2.6 --> 3.4 - Hypomagnesemia - Mg 1.7 - Received IV Magnesium sulfate and IV KCL on 11/29/2016. Pt Condition on Discharge: Good Discharge Disposition: Discharge Home Discharge Time: > 30 minutes Discharge Instructions DIET: Follow Instructions for: Heart Healthy Diet Activities you can perform: Regular-No Restrictions Follow up Referrals: Gastroenterology - 2 Weeks with Valentino Riddle MD PCP Follow-up - 1 Week New Orders: CBC WITH DIFF New Medications: Ferrous Sulfate (Ferrous Sulfate) 325 Mg Tab 325 MG PO DAILY Nutritional Supplement #30 Ref 0 TAB Pantoprazole (Protonix) 40 Mg Tab 40 MG PO DAILY Reflux #30 Ref 0 TAB Amlodipine (Norvasc) 5 Mg Tab 5 MG PO DAILY Blood Pressure Management #30 TAB Carvedilol (Coreg) 6.25 Mg Tab 6.25 MG PO Q12HR Blood Pressure Management #60 TAB Hydrocodone-Acetaminophen (Hydrocodone-Acetaminophen) 5-325 mg Tab 1 TAB PO Q6HR PRN Pain #20 TAB Sulfamethoxazole-Trimethoprim (Bactrim DS) 800-160 Mg Tab 1 TAB PO Q12HR Infection #6 TAB Continued Medications: Apixaban (Eliquis) 2.5 Mg Tab 2.5 MG PO BID Blood Clot Prevention #60 Ref 3 TAB Calcium Carbonate (Calcium Carbonate) 500 Mg Chew 500 MG CHEW TID 500 mg calcium carbonate (200 mg elemental calcium) Calcium Supplement Ref 0 TAB Diltiazem (Diltiazem) 60 Mg Tab 60 MG PO QID Angina #120 Ref 6 TAB Ergocalciferol (Drisdol) 50,000 Unit Cap 73237 UNITS PO Q7D Nutritional Supplement #30 Ref 0 CAP Ebony Mena DO Dec 01, 2016 10:53
[2016-12-01 11:31] VITALS: RESP 20
[2017-01-05] MEDS ORDERED: APIX2.5T PO (12:32)
[2017-03-12] MEDS ORDERED: APIX2.5T PO (15:55)
[2017-03-16] MEDS ORDERED: APIX5TAB PO (16:56)
== END 2016-12-01 14:54 | disposition home or self-care (01) | DRG 378 ==
LOC: NEPC 03:12 → NEDA 05:22 → NEPGCP 08:58
PROVIDERS: ADMIT Hospitalist; ATTEND Hospitalist
PROC: 0DBL8ZX Excision of Transverse Colon, Via Natural or Artificial Opening Endoscopic, Diagnostic (ICD-10-PCS; principal; 2016-11-30 11:00)
PROC: 0DB98ZX Excision of Duodenum, Via Natural or Artificial Opening Endoscopic, Diagnostic (ICD-10-PCS; 2016-11-30 11:00)
DX: K57.31 Diverticulosis of large intestine without perforation or abscess with bleeding (principal); J96.10 Chronic respiratory failure, unspecified whether with hypoxia or hypercapnia; N17.9 Acute kidney failure, unspecified; N39.0 Urinary tract infection, site not specified; Z99.81 Dependence on supplemental oxygen; E83.42 Hypomagnesemia; D62 Acute posthemorrhagic anemia; J44.9 Chronic obstructive pulmonary disease, unspecified; I48.2 Chronic atrial fibrillation; K21.9 Gastro-esophageal reflux disease without esophagitis; Z79.01 Long term (current) use of anticoagulants; E87.6 Hypokalemia; I10 Essential (primary) hypertension; D12.3 Benign neoplasm of transverse colon; E11.9 Type 2 diabetes mellitus without complications; Z87.891 Personal history of nicotine dependence
CPT/HCPCS: 71010; 80048; 80053; 81001; 83690; 83735; 85014; 85018; 85025; 85027; 85610; 85730; 86850; 86900; 86901; 87077; 87086; 87186; 88305; 93005; 96361; 96374; 96375; C9113; J2405; J3475; J3480; J7030

== ENCOUNTER 2017-02-04 13:59 | Emergency (ER) | payer MEDICAID, OTHER ==
[~2017-02-04 13:59] MED LIST changes: +AMLO5 PO; +BACT800T5 PO; +CARV6.25 PO; +FERR325T PO; +HYDR-3516 PO; +PROT40TA PO
[2017-02-04 14:04] VITALS: BP 211/94; PULSE 102; RESP 24; TEMP 98.9; O2SAT 87
[2017-02-04 14:15] VITALS: BP 209/90; PULSE 105; RESP 30; O2SAT 97
[2017-02-04] MEDS ORDERED: DILTIAZEM HCL 60 MG TAB PO ONE (14:30)
[2017-02-04] MEDS ORDERED: RESP: ALBUTEROL 2.5 MG/IPRATROPIUM 0.5 MG NEB (SCH) NEB ONE (14:30)
--- NOTE | 2017-02-04 14:38 | RADRPT ---
EXAM DATE/TIME: 02/04/2017 14:39 [facility] COMPARISON: CHEST PA & LAT, February 01, 2016, 6:46. INDICATIONS : Shortness of breath. MEDICAL HISTORY : Chronic obstructive pulmonary disease. Diabetes mellitus type II. Gastroesophageal reflux disease. Afib. SURGICAL HISTORY : Hysterectomy. ENCOUNTER: Initial ACUITY: 1 day PAIN SCORE: 0/10 LOCATION: Bilateral chest FINDINGS: PA and lateral views of the chest demonstrate the lungs to be symmetrically aerated without evidence of mass, infiltrate or effusion. The lungs are hyperinflated. The cardiomediastinal contours are unre markable. Osseous structures are intact. CONCLUSION: Hyperinflation suggesting COPD. No acute infiltrate. Baldev Arteaga Jr., MD on February 04, 2017 at 14:35 Board Certified Radiologist. This report was verified electronically.
[2017-02-04 14:45] VITALS: O2SAT 98
[2017-02-04 14:50] VITALS: O2SAT 89
[2017-02-04 15:05] LABS: AUTOMATED NEUTROPHIL # 11.2 TH/MM3 (1.8-7.7); BASOPHIL # 0.2 TH/MM3 (0-0.2); BASOPHIL % 1.2 % (0.0-2.0); EOSINOPHIL # 0.1 TH/MM3 (0-0.4); EOSINOPHIL % 0.7 % (0.0-4.0); HEMATOCRIT 40.8 % (35.0-46.0); HEMO FLAGS DIFF FINAL; LYMPH % 20.5 % (9.0-44.0); LYMPHOCYTE # 3.2 TH/MM3 (1.0-4.8); MEAN CORPUSCULAR HEMOGLOBIN 29.1 PG (27.0-34.0); MEAN CORPUSCULAR HGB CONC 33.4 % (32.0-36.0); MONO % 6.8 % (0.0-8.0); NEUT % 70.8 % (16.0-70.0); PLATELET COUNT 368 TH/MM3 (150-450); RED CELL DISTRIBUTION WIDTH 13.6 % (11.6-17.2); WHITE BLOOD COUNT 15.8 TH/MM3 (4.0-11.0)
--- NOTE | 2017-02-04 15:22 | PD ---
HPI Chief Complaint: Respiratory Symptoms Time Seen by Provider: 14:09 Travel History International Travel<30 days: No Contact w/Intl Traveler<30days: No History of Present Illness HPI 66 y/o female presents stating she ran out of her oxygen and she has needing help getting oxygen again. She states the clinic cannot set her up with this. She denies increased use in her medications and in fact she doesn't have any inhalers that she ran out of her symbicort. She states she would not be here if she didn't run out of oxygen. PFSH Past Medical History Hx Anticoagulant Therapy: Yes Arthritis: Yes ([place] hands) Asthma: No Autoimmune Disease: No Blood Disorders: Yes (x3 days) Anxiety: Yes Depression: No Heart Rhythm Problems: No Cancer: No Cardiovascular Problems: Yes (afib) High Cholesterol: No Chest Pain: No Congestive Heart Failure: No COPD: Yes Diabetes: Yes Patient Takes Glucophage: No Diminished Hearing: Yes ([place]) Endocrine: Yes Gastrointestinal Disorders: Yes GERD: Yes Genitourinary: Yes Hiatal Hernia: No Immune Disorder: No Kidney Stones: Yes (25 yrs ago) Musculoskeletal: Yes Neurologic: No Psychiatric: No Reproductive: No Respiratory: Yes (COPD) Immunizations Current: Yes Renal Failure: No Sleep Apnea: No Ulcer: No Tetanus Vaccination: < 5 Years Influenza Vaccination: No Past Surgical History Hysterectomy: Yes Tonsillectomy: Yes Social History Alcohol Use: No Tobacco Use: No (QUIT 4 YEARS AGO ) Substance Use: No Allergies-Medications (Allergen,Severity, Reaction): Coded Allergies: Metformin (Verified Allergy, Intermediate, 11/28/16) Reported Meds & Prescriptions Reported Meds & Active Scripts Active Symbicort Inh (Budesonide/Formoterol Fumarate) 80-4.5 Mcg/Act Aero 2 Puff INH Q12HR Ventolin Hfa 18 GM Inh (Albuterol Sulfate) 90 Mcg/Act Aer 2 Puff INH Q4-6H PRN Eliquis (Apixaban) 2.5 Mg Tab 2.5 Mg PO BID Ferrous Sulfate 325 Mg Tab 325 Mg PO DAILY Protonix (Pantoprazole Sodium) 40 Mg Tab 40 Mg PO DAILY Bactrim DS (Sulfamethoxazole-Trimethoprim) 800-160 Mg Tab 1 Tab PO Q12HR Hydrocodone-Acetaminophen 5-325 mg Tab 1 Tab PO Q6HR PRN Coreg (Carvedilol) 6.25 Mg Tab 6.25 Mg PO Q12HR Norvasc (Amlodipine Besylate) 5 Mg Tab 5 Mg PO DAILY Diltiazem (Diltiazem HCl) 60 Mg Tab 60 Mg PO QID Reported Drisdol (Ergocalciferol) 50,000 Unit Cap 50,000 Units PO Q7D Oxygen tank (Oxygen) 1 Ea Tank 2 Liter STEPHANI.CANULA CONTINUOUS Oxygen Concentrator Portable Gaseous 2 L/min via Nasal Cannula Continuous For 99 months Calcium Carbonate 500 Mg Chew 500 Mg CHEW TID 500 mg calcium carbonate (200 mg elemental calcium) Review of Systems Except as stated in HPI: all other systems reviewed are Neg Physical Exam Narrative GENERAL: Well-nourished, well-developed patient. Well-appearing SKIN: Warm and dry. HEAD: Normocephalic and atraumatic. EYES: No injection or drainage. ENT: No nasal drainage noted. NECK: Supple, trachea midline. CARDIOVASCULAR: Regular rate and rhythm RESPIRATORY: Clear with mild diminished bilaterally. No accessory muscle use. GASTROINTESTINAL: Abdomen soft, non-tender, nondistended. EXTREMITIES: No edema. NEUROLOGICAL: Awake and alert. Motor and sensory grossly within normal limits. Normal speech. Data Data Last Documented VS Vital Signs Date Time Temp Pulse Resp B/P Pulse Ox O2 Delivery O2 Flow Rate FiO2 02/04/17 17:01 102 30 188/116 96 Nasal Cannula 3 02/04/17 14:04 98.9 182/105 on recheck after home cardizem, and now due for another medication which she states she will take on her own and wants to go Orders Electrocardiogram (02/04/17 ) Chest, Pa & Lat (02/04/17 ) Albuterol-Ipratropium Neb (Duoneb Neb) (02/04/17 14:30) Diltiazem (Cardizem) (02/04/17 14:30) Complete Blood Count With Diff (02/04/17 14:36) Basic Metabolic Panel (Bmp) (02/04/17 14:36) Iv Access Insert/Monitor (02/04/17 14:36) Ecg Monitoring (02/04/17 14:36) Oximetry (02/04/17 14:36) Resp Home Oxygen Walk Test (02/04/17 ) Carvedilol (Coreg) (02/04/17 16:45) Labs Laboratory Tests Test 02/04/17 14:47 White Blood Count 15.8 TH/MM3 Red Blood Count 4.70 MIL/MM3 Hemoglobin 13.6 GM/DL Hematocrit 40.8 % Mean Corpuscular Volume 87.0 FL Mean Corpuscular Hemoglobin 29.1 PG Mean Corpuscular Hemoglobin 33.4 % Concent Red Cell Distribution Width 13.6 % Platelet Count 368 TH/MM3 Mean Platelet Volume 7.8 FL Neutrophils (%) (Auto) 70.8 % Lymphocytes (%) (Auto) 20.5 % Monocytes (%) (Auto) 6.8 % Eosinophils (%) (Auto) 0.7 % Basophils (%) (Auto) 1.2 % Neutrophils # (Auto) 11.2 TH/MM3 Lymphocytes # (Auto) 3.2 TH/MM3 Monocytes # (Auto) 1.1 TH/MM3 Eosinophils # (Auto) 0.1 TH/MM3 Basophils # (Auto) 0.2 TH/MM3 CBC Comment DIFF FINAL Differential Comment Sodium Level 133 MEQ/L Potassium Level 3.7 MEQ/L Chloride Level 86 MEQ/L Carbon Dioxide Level 39.6 MEQ/L Anion Gap 7 MEQ/L Blood Urea Nitrogen 26 MG/DL Creatinine 1.17 MG/DL Estimat Glomerular Filtration 47 ML/MIN Rate Random Glucose 170 MG/DL Calcium Level 10.0 MG/DL [facility] Medical Decision Making Medical Screen Exam Complete: Yes Emergency Medical Condition: Yes Medical Record Reviewed: Yes (pmh confirmed) Interpretation(s) Last 24 hours Impressions Chest X-Ray 02/04/17 0000 Signed Impressions: Service Date/Time: February 14:39 - CONCLUSION: Hyperinflation suggesting COPD. No acute infiltrate. Baldev Arteaga Jr., MD CBC & BMP Diagram 02/04/17 14:47 Differential Diagnosis Pneumothorax, COPD, oxygen replacement Narrative Course Will check blood work and chest x-ray and dose with DuoNeb and discuss with case management about oxygen replacement Walk test ordered for oxygen and prescription written. patient set up with home oxygen and has tank to go home with, patient given refill of symbicort and albuterol rescue inhaler prescription provided, Patient denies any new complaints and states that they are feeling better. Patient happy with care, all questions answered. Patient knows that follow up is incumbent on them and to return to the emergency room immediately if new or worsening symptoms develop. Patient given strict return precautions, vitals reviewed and are normal, agrees to further workup as an outpatient. Diagnosis Primary Impression: COPD (chronic obstructive pulmonary disease) Qualified Code: J44.9 - Chronic obstructive pulmonary disease, unspecified COPD type Additional Impressions: Oxygen supply absent Hypertensive urgency Patient Instructions: General Instructions Additional Instructions: return as needed, follow with primary tommorrow, keep blood pressure log, albuterol as needed Med/Other Pt SpecificInfo: Prescription(s) given Scripts Budesonide-Formoterol Inh (Symbicort Inh)80-4.5 Mcg/Act Aero2 Puff INH Q12HR # 1 INHALER Ref 0 Prov:Erika Sorto MD 02/04/17 Albuterol 18 GM Inh (Ventolin Hfa 18 GM Inh)90 Mcg/Act Aer2 Puff INH Q4-6H PRN ( SHORTNESS OF BREATH) #1 INHALER Prov:Erika Sorto MD 02/04/17 Disposition: 01 DISCHARGE HOME Condition: Stable Erika Sorto MD February 04, 2017 15:22
[2017-02-04 15:42] LABS: BICARBONATE 39.6 MEQ/L (21.0-32.0)
[2017-02-04 15:44] LABS: POTASSIUM 3.7 MEQ/L (3.5-5.1)
[2017-02-04] MEDS ORDERED: CARVEDILOL 6.25 MG TAB PO ONE (16:45)
[2017-02-04 17:01] VITALS: BP 188/116; PULSE 102; RESP 30; O2SAT 96
[2017-02-04] MEDS ORDERED: SYMB80AE INH (17:07)
[2017-02-04] MEDS ORDERED: VENTAER INH (17:07)
[2017-02-04 17:28] VITALS: BP 182/102; PULSE 98; RESP 22; O2SAT 98
[2017-03-12] MEDS ORDERED: APIX2.5T PO (15:55)
[2017-03-16] MEDS ORDERED: APIX5TAB PO (16:56)
== END 2017-02-04 17:29 | disposition home or self-care (01) ==
LOC: NEPC 13:59
DX: J44.9 Chronic obstructive pulmonary disease, unspecified (principal); I16.0 Hypertensive urgency; Z87.891 Personal history of nicotine dependence
CPT/HCPCS: 71020; 80048; 85025; 94620; 94664

== ENCOUNTER 2017-02-20 18:17 | Inpatient (IN) | payer MEDICAID, OTHER ==
[~2017-02-20] VITALS: Ht 152.4 cm; Wt 67.7 kg
[~2017-02-20 18:17] MED LIST changes: +SYMB80AE INH; +VENTAER INH
[2017-02-20 18:25] VITALS: BP 205/98; PULSE 100; RESP 22; TEMP 98.1; O2SAT 99
[2017-02-20] MEDS ORDERED: methylPREDNISolone SOD SUCC 125 MG/2 ML VIAL IVP ONE (18:45)
[2017-02-20] MEDS ORDERED: SODIUM CHLORIDE 0.9% FLUSH 10 ML FLUSH IVF PRN (18:45)
--- NOTE | 2017-02-20 18:48 | PD ---
HPI Chief Complaint: Respiratory Distress Time Seen by Provider: 18:43 Travel History International Travel<30 days: No Contact w/Intl Traveler<30days: No Traveled to known affect area: No History of Present Illness HPI Patient comes in complaining of worsening COPD that began today. Patient states she did use her inhaler around noon today this seemed to help little better however she continues having shortness of breath feels similar to her previous COPD exacerbations. Patient reports associated substernal chest pain that she normally gets with her COPD exacerbations. Patient has associated headache and nausea as well. Patient also reports over the 3 days she's been having urinary frequency with minimal output. Patient denies any fevers, vomiting, abdominal pain, nausea tingling anywhere, diaphoresis, or cough. PFSH Past Medical History Hx Anticoagulant Therapy: Yes Arthritis: Yes ([place] hands) Asthma: No Autoimmune Disease: No Blood Disorders: Yes (x3 days) Anxiety: Yes Depression: No Heart Rhythm Problems: No Cancer: No Cardiovascular Problems: Yes (afib) High Cholesterol: No Chest Pain: No Congestive Heart Failure: No COPD: Yes Diabetes: Yes Diminished Hearing: Yes ([place]) Endocrine: Yes Gastrointestinal Disorders: Yes GERD: Yes Genitourinary: Yes Hiatal Hernia: No Immune Disorder: No Kidney Stones: Yes (25 yrs ago) Musculoskeletal: Yes Neurologic: No Psychiatric: No Reproductive: No Respiratory: Yes (COPD) Immunizations Current: Yes Renal Failure: No Sleep Apnea: No Ulcer: No ?: Not Past Surgical History Hysterectomy: Yes Tonsillectomy: Yes Social History Alcohol Use: No Tobacco Use: No Substance Use: No Allergies-Medications (Allergen,Severity, Reaction): Coded Allergies: Metformin (Verified Allergy, Intermediate, 02/20/17) Reported Meds & Prescriptions Reported Meds & Active Scripts Active Ventolin Hfa 18 GM Inh (Albuterol Sulfate) 90 Mcg/Act Aer 2 Puff INH Q4-6H PRN Eliquis (Apixaban) 2.5 Mg Tab 2.5 Mg PO BID Reported Oxygen tank (Oxygen) 1 Ea Tank 2 Liter STEPHNAI.CANULA CONTINUOUS Oxygen Concentrator Portable Gaseous 2 L/min via Nasal Cannula Continuous For 99 months Calcium Carbonate 500 Mg Chew 500 Mg CHEW TID 500 mg calcium carbonate (200 mg elemental calcium) Review of Systems Except as stated in HPI: all other systems reviewed are Neg Physical Exam Narrative GENERAL: Well-developed, overly nourished, in no acute distress, and non-ill appearing. SKIN: Focused skin assessment warm and dry. HEAD: Atraumatic. Normocephalic. EYES: Pupils equal and round. EOMI. No scleral icterus. No injection or drainage. ENT: No nasal bleeding or discharge. Mucous membranes pink and moist. NECK: Trachea midline. Supple. No nuclear rigidity. CARDIOVASCULAR: Regular rate and rhythm. No murmur appreciated. RESPIRATORY: Accessory muscle use. Mild respiratory distress. Decreased breath sounds throughout. Breath sounds equal bilaterally. Patient speaking in full sentences but has to take a deep breath between each one. GASTROINTESTINAL: Abdomen soft, minimal tenderness suprapubic, nondistended. Hepatic and splenic margins not palpable. Normal bowel sounds 4. No pulsatile mass. MUSCULOSKELETAL: No obvious deformities. No clubbing. No cyanosis. No edema. Full range of motion. NEUROLOGICAL: Awake and alert. No obvious cranial nerve deficits. Motor grossly within normal limits. Normal speech. PSYCHIATRIC: Appropriate mood and affect; insight and judgment normal. Data Data Last Documented VS Vital Signs Date Time Temp Pulse Resp B/P Pulse Ox O2 Delivery O2 Flow Rate FiO2 02/20/17 20:35 105 16 194/88 98 3 02/20/17 18:32 Nasal Cannula 02/20/17 18:25 98.1 Orders Complete Blood Count With Diff (02/20/17 18:39) Comprehensive Metabolic Panel (02/20/17 18:39) B-Type Natriuretic Peptide (02/20/17 18:39) Act Partial Throm Time (Ptt) (02/20/17 18:39) Prothrombin Time / Inr (Pt) (02/20/17 18:39) Magnesium (Mg) (02/20/17 18:39) Ckmb (Isoenzyme) Profile (02/20/17 18:39) Troponin I (02/20/17 18:39) Urinalysis - C+S If Indicated (02/20/17 18:39) Iv Access Insert/Monitor (02/20/17 18:39) Electrocardiogram (02/20/17 18:39) Ecg Monitoring (02/20/17 18:39) Oximetry (02/20/17 18:39) Oxygen Administration (02/20/17 18:39) Chest, Single Ap (02/20/17 18:39) Sodium Chloride 0.9% Flush (Ns Flush) (02/20/17 18:45) Methylprednisolone So Succ Inj (Solumedr (02/20/17 18:45) Albuterol-Ipratropium Neb (Duoneb Neb) (02/20/17 18:45) Morphine Inj (Morphine Inj) (02/20/17 20:00) Ondansetron Inj (Zofran Inj) (02/20/17 20:00) Sodium Chlorid 0.9% 500 Ml Inj (Ns 500 M (02/20/17 20:00) Ct Pulmonary Angiogram (02/20/17 ) Iodixanol 320 Inj (Eps) (Visipaque 320 I (02/20/17 20:59) Potassium Chloride (Kcl) (02/20/17 22:30) Iodixanol 320 Inj (Eps) (Visipaque 320 I (02/20/17 22:00) Admit Order (Ed Use Only) (02/20/17 23:03) Labs Laboratory Tests Test 02/20/17 02/20/17 18:45 21:00 White Blood Count 17.7 TH/MM3 Red Blood Count 4.84 MIL/MM3 Hemoglobin 13.7 GM/DL Hematocrit 42.3 % Mean Corpuscular Volume 87.3 FL Mean Corpuscular Hemoglobin 28.2 PG Mean Corpuscular Hemoglobin 32.3 % Concent Red Cell Distribution Width 14.0 % Platelet Count 326 TH/MM3 Mean Platelet Volume 8.1 FL Neutrophils (%) (Auto) 66.6 % Lymphocytes (%) (Auto) 22.8 % Monocytes (%) (Auto) 8.8 % Eosinophils (%) (Auto) 1.0 % Basophils (%) (Auto) 0.8 % Neutrophils # (Auto) 11.8 TH/MM3 Lymphocytes # (Auto) 4.0 TH/MM3 Monocytes # (Auto) 1.6 TH/MM3 Eosinophils # (Auto) 0.2 TH/MM3 Basophils # (Auto) 0.1 TH/MM3 CBC Comment DIFF FINAL Differential Comment Prothrombin Time 10.8 SEC Prothromb Time International 1.0 RATIO Ratio Activated Partial 27.6 SEC Thromboplast Time Sodium Level 133 MEQ/L Potassium Level 3.0 MEQ/L Chloride Level 85 MEQ/L Carbon Dioxide Level 36.5 MEQ/L Anion Gap 12 MEQ/L Blood Urea Nitrogen 21 MG/DL Creatinine 1.42 MG/DL Estimat Glomerular Filtration 37 ML/MIN Rate Random Glucose 139 MG/DL Calcium Level 9.6 MG/DL Magnesium Level 2.0 MG/DL Total Bilirubin 0.3 MG/DL Aspartate Amino Transf 28 U/L (AST/SGOT) Alanine Aminotransferase 24 U/L (ALT/SGPT) Alkaline Phosphatase 107 U/L Total Creatine Kinase 58 U/L Troponin I 0.03 NG/ML B-Type Natriuretic Peptide 62 PG/ML Total Protein 6.9 GM/DL Albumin 3.1 GM/DL Urine Color YELLOW Urine Turbidity HAZY Urine pH 6.5 Urine Specific [place] 1.021 Urine Protein 300 mg/dL Urine Glucose (UA) 300 mg/dL Urine Ketones NEG mg/dL Urine Occult Blood TRACE Urine Nitrite NEG Urine Bilirubin NEG Urine Urobilinogen LESS THAN 2.0 MG/DL Urine Leukocyte Esterase NEG Urine RBC 1 /hpf Urine WBC 2 /hpf Urine Squamous Epithelial 6 /hpf Cells Microscopic Urinalysis Comment CULT NOT INDICATED MDM Medical Decision Making Medical Screen Exam Complete: Yes Emergency Medical Condition: Yes Interpretation(s) Chest x-ray read by the radiologist shows: Persistent masslike area seen in the left upper lung. CTA pulmonary read by the radiologist shows: 1. No pulmonary embolus. 2. 1.4 cm irregular mass at the superior segment of the left lower lobe. This is mildly increased in size since the prior examination. Given the increase in size and its morphology, this needs to be viewed with suspicion for possible malignancy. It is amenable to percutaneous biopsy. 2. Nonspecific 1.2 cm area of density at the lateral right mid lung. This area and the left lower lobe mass could both be noninvasively further evaluated with a PET FDG study. 3. Widespread emphysematous change seen throughout the lungs. Differential Diagnosis COPD exacerbation, UTI, electrolyte abnormality, pneumonia, acute coronary syndrome, other Narrative Course 1942 patient reassessed reports breathing has improved status post IV Solu- Medrol and DuoNeb. Patient complaining of headache. Discussed chest x-ray findings with patient. Patient states she never did follow-up regarding nodules found on previous CTA of last year, because she does not want to be cut on. Patient was seen and examined. Initial laboratory and radiological studies were obtained and reviewed. Discussed patient with Dr. Romero, who saw and evaluated the patient is in agreement with plan of care and disposition. Discussed all findings and plan of care with patient, who was agreeable for admission. All questions were answered. Patient remained stable throughout ED course. Physician Communication Physician Communication [id number] Winslow, resident entry level installation technician for Dr. Sam, who is agreeable to admit patient. Diagnosis Primary Impression: Acute exacerbation of chronic obstructive pulmonary disease (COPD) Additional Impression: Lung mass Admitting Information Admitting Physician Requests: Admit Condition: Stable Raul Briscoe February 20, 2017 18:47
[2017-02-20 19:10] LABS: AUTOMATED NEUTROPHIL # 11.8 TH/MM3 (1.8-7.7); BASOPHIL # 0.1 TH/MM3 (0-0.2); BASOPHIL % 0.8 % (0.0-2.0); EOSINOPHIL # 0.2 TH/MM3 (0-0.4); HEMATOCRIT 42.3 % (35.0-46.0); HEMO FLAGS DIFF FINAL; LYMPH % 22.8 % (9.0-44.0); MEAN CELL VOLUME 87.3 FL (80.0-100.0); MEAN CORPUSCULAR HEMOGLOBIN 28.2 PG (27.0-34.0); MEAN CORPUSCULAR HGB CONC 32.3 % (32.0-36.0); MONO % 8.8 % (0.0-8.0); NEUT % 66.6 % (16.0-70.0); PLATELET COUNT 326 TH/MM3 (150-450); RED BLOOD COUNT 4.84 MIL/MM3 (4.00-5.30); WHITE BLOOD COUNT 17.7 TH/MM3 (4.0-11.0)
[2017-02-20 19:18] LABS: APTT (PATIENT) 27.6 SEC (24.3-30.1); PROTHROMBIN TIME - PATIENT 10.8 SEC (9.8-11.6)
[2017-02-20] MEDS: RESP: ALBUTEROL 2.5 MG/IPRATROPIUM 0.5 MG NEB (SCH) INH ×2 (19:24→23:57)
--- NOTE | 2017-02-20 19:33 | RADRPT ---
EXAM DATE/TIME: 02/20/2017 18:59 [facility] COMPARISON: CHEST SINGLE AP, January 22, 2016, 12:46. CHEST SINGLE AP, November 28, 2016, 4:15. INDICATIONS : Chest pain and shortness of breath. MEDICAL HISTORY : Chronic obstructive pulmonary disease. SURGICAL HISTORY : None. ENCOUNTER: Initial ACUITY: 2 days PAIN SCORE: 3/10 LOCATION: Chest FINDINGS: There is a subtle area of increased density at the superolateral left lung. Patient has previously b een shown to have a mass in this region on prior CT examinations. The lungs do appear hyperinflated. No other focal mass is seen within the lungs. The heart size is normal. No effusion is seen. CONCLUSION: Persistent masslike area seen in the left upper lung. Magdy Lau MD on February 20, 2017 at 19:24 Board Certified Radiologist. This report was verified electronically.
[2017-02-20 19:38] LABS: ALKALINE PHOSPHATASE 107 U/L (45-117); ALT (GPT) 24 U/L (10-53); ANION GAP 12 MEQ/L (5-15); AST (GOT) 28 U/L (15-37); BICARBONATE 36.5 MEQ/L (21.0-32.0); BLOOD UREA NITROGEN 21 MG/DL (7-18); CHLORIDE 85 MEQ/L (98-107); GLOMERULAR FILTRATION RATE 37 ML/MIN (>89); SODIUM (NA) 133 MEQ/L (136-145); TOTAL BILIRUBIN ADULT 0.3 MG/DL (0.2-1.0)
[2017-02-20 19:39] LABS: CREATINE KINASE 58 U/L (26-192)
[2017-02-20] MEDS ORDERED: ONDANSETRON HCL 4 MG/2 ML VIAL IV PUSH ONE (20:00)
[2017-02-20] MEDS ORDERED: MORPHINE SULFATE 4 MG/ML INJ IV PUSH ONE (20:00)
[2017-02-20] MEDS ORDERED: SODIUM CHLORID 0.9% 500 ML INJ 500 ML IV ONE (20:00)
[2017-02-20 20:35] VITALS: BP 194/88; PULSE 105; RESP 16; O2SAT 98
[2017-02-20] MEDS ORDERED: IODIXANOL 320 MG/ML 50 ML VIAL (for EPS) IV ONE ×2 (20:59→22:00)
[2017-02-20 21:48] LABS: BLOOD, URINE TRACE (NEG); COMMENT (UR) CULT NOT INDICATED; CULTURE IF INDICATED CULT NOT INDICATED; GLUCOSE,URINE 300 mg/dL (NEG); KETONE, URINE NEG (NEG); NITRITE,URINE NEG (NEG); PH, URINE 6.5 (5.0-8.5); SQUAMOUS EPITHELIAL CELL URINE 6 /hpf (0-5); URINE COLOR YELLOW (YELLW/STRAW)
[2017-02-20] MEDS ORDERED: POTASSIUM CHLORIDE 20 MEQ CONTROLLED RELEASE TAB PO ONE (22:30)
--- NOTE | 2017-02-20 22:56 | RADRPT ---
EXAM DATE/TIME: 02/20/2017 20:54 [facility] COMPARISON: CT PULMONARY ANGIOGRAM, January 22, 2016, 15:05. INDICATIONS : Shortness of breath; rule out pulmonary embolus. IV CONTRAST: 49 cc Visipaque (iodixanol) IV RADIATION DOSE: 10.29 CTDIvol (mGy) MEDICAL HISTORY : Chronic obstructive pulmonary disease. Cardiovascular disease SURGICAL HISTORY : Hysterectomy. ENCOUNTER: Initial ACUITY: 1 day PAIN SCALE: 0/10 LOCATION: Chest TECHNIQUE: Volumetric scanning of the chest was performed using a pulmonary embolism protocol MIP images were re constructed. Using automated exposure control and adjustment of the mA and/or kV according to patien t size, radiation dose was kept as low as reasonably achievable to obtain optimal diagnostic quality images. FINDINGS: There is a 1.4 cm irregular mass seen at the posterolateral aspect of the superior segment of the lef t lower lobe abutting the fissure. This appears to have increased in size. There is widespread emphysematous change seen throughout the lungs. There is a persistent vague area of increased density seen at the lateral right mid lung measuring 1.2 cm. This is stable. The pulm onary arterial structures are well demonstrated. A pulmonary embolus is not present. There is some minimal calcification at the coronary arteries. There are normal sized lymph nodes seen in the media stinum. Significantly enlarged adenopathy is not clearly appreciated. There is a calcified granulom a seen at the spleen. CONCLUSION: 1. No pulmonary embolus. 2. 1.4 cm irregular mass at the superior segment of the left lower lobe. This is mildly increased i n size since the prior examination. Given the increase in size and its morphology, this needs to be viewed with suspicion for possible malignancy. It is amenable to percutaneous biopsy. 2. Nonspecific 1.2 cm area of density at the lateral right mid lung. This area and the left lower l obe mass could both be noninvasively further evaluated with a PET FDG study. 3. Widespread emphysematous change seen throughout the lungs. Magdy Lau MD on February 20, 2017 at 22:41 Board Certified Radiologist. This report was verified electronically.
--- NOTE | 2017-02-20 23:07 | HHI.HP ---
HPI Service Family Medicine Primary Care Physician No Primary Care Physician Admission Diagnosis COPD exacerbation, lung mass Diagnoses: International Travel<30 Days: No Contact w/Intl Traveler<30days: No Known Affected Area: No History of Present Illness This is a 66-year-old female with history of oxygen dependent COPD, known pulmonary nodules, presents with difficulty breathing 1 day. She states that yesterday she "just could not breathe." She also says she couldn't pee and had a headache. She says all of that was too much. She denies fevers. No cough. No dysuria. During my interview, she is breathing much better after morphine and breathing treatment. She is hungry and feeling better. She is aware of the pulmonary nodules in her lungs from January 2016 CT scan. She states "I do not want to be cut on." Otherwise, she may be interested in getting a biopsy. Review of Systems Constitutional: COMPLAINS OF: Chills, DENIES: Fever Eyes: DENIES: Blurred vision, Diplopia Respiratory: DENIES: Apneas, Cough Cardiovascular: COMPLAINS OF: Chest pain (when doesn't take medicine), DENIES : Palpitations Gastrointestinal: COMPLAINS OF: Abdominal pain (acid reflux), Nausea, DENIES: Constipation, Diarrhea, Vomiting Neurologic: COMPLAINS OF: Headache, DENIES: Abnormal gait Psychiatric: COMPLAINS OF: Anxiety, DENIES: Confusion Past Family Social History Past Medical History COPD O2 Dependent A-fib on Eliquis HTN Past Surgical History Tonsillectomy Reported Medications Reported Meds & Active Scripts Active Ventolin Hfa 18 GM Inh (Albuterol Sulfate) 90 Mcg/Act Aer 2 Puff INH Q4-6H PRN Eliquis (Apixaban) 2.5 Mg Tab 2.5 Mg PO BID Reported Oxygen tank (Oxygen) 1 Ea Tank 2 Liter STEPHANI.CANULA CONTINUOUS Oxygen Concentrator Portable Gaseous 2 L/min via Nasal Cannula Continuous For 99 months Calcium Carbonate 500 Mg Chew 500 Mg CHEW TID 500 mg calcium carbonate (200 mg elemental calcium) Diltiazem 60 mg qid Allergies: Coded Allergies: Metformin (Verified Allergy, Intermediate, 02/20/17) Active Ordered Medications Active Medications Albuterol/ Ipratropium (Duoneb Neb) 1 ampule Q15M INH Last administered on t 19:24; Admin Dose 1 AMPULE; Start 02/20/17 at 18:45; Stop 02/20/17 at 19:16 ; Status DC Iodixanol (Visipaque 320 Inj (Eps)) 47 ml STK-MED ONCE IV; Start 02/20/17 at 20: 59; Stop 02/20/17 at 21:00; Status DC Iodixanol (Visipaque 320 Inj (Eps)) 47 ml STK-MED ONCE IV; Start 02/20/17 at 22: 00; Stop 02/20/17 at 22:57; Status DC Methylprednisolone Sodium Succinate (SoluMEDROL INJ) 125 mg ONCE ONCE IVP Last administered on 02/20/17 18:58; Admin Dose 125 MG; Start 02/20/17 at 18:45; Stop 02/20/17 at 18:46; Status DC Morphine Sulfate (Morphine Inj) 2 mg ONCE ONCE IV PUSH Last administered on 20:50; Admin Dose 2 MG; Start 02/20/17 at 20:00; Stop 02/20/17 at 20:01 ; Status DC Ondansetron HCl 4 mg 4 mg ONCE ONCE IV PUSH Last administered on 02/20/17 20: 50; Admin Dose 4 MG; Start 02/20/17 at 20:00; Stop 02/20/17 at 20:01; Status DC Potassium Chloride (KCl) 40 meq ONCE ONCE PO; Start 02/20/17 at 22:30; Stop at 22:31; Status DC Sodium Chloride (NS 500 ml Inj) 500 ml @ 500 mls/hr BOLUS ONCE IV Last administered on 02/20/17 20:50; Admin Dose 500 MLS/HR; Start 02/20/17 at 20:00 ; Stop 02/20/17 at 20:59; Status DC Sodium Chloride (NS Flush) 2 ml UNSCH PRN IVF Last administered on 02/20/17 20 :51; Admin Dose 2 ML; Start 02/20/17 at 18:45 Family History Mom: MS at 69 Dad: unknown Social History Tobacco: started at 11, quit at 61; 1-2 PPD for duration Alcohol: quit many years ago Illicit: none Lives with in a trailer. Independent of ADLs and IADL. Physical Exam Vital Signs Vital Signs Date Time Temp Pulse Resp B/P Pulse Ox O2 Delivery O2 Flow Rate FiO2 02/20/17 20:35 105 16 194/88 98 3 02/20/17 18:32 Nasal Cannula 02/20/17 18:25 98.1 100 22 205/98 99 Physical Exam GENERAL: This is an elderly-appearing female resting comfortably upright in bed. No acute distress. SKIN: No rashes, ecchymoses or lesions. Cool and dry. HEAD: Atraumatic. Normocephalic. No temporal or scalp tenderness. EYES: Pupils equal round and reactive. Extraocular motions intact. No scleral icterus. No injection or drainage. ENT: Nose without bleeding, purulent drainage or septal hematoma. Throat without erythema, tonsillar hypertrophy or exudate. Uvula midline. Airway patent. NECK: Trachea midline. No JVD or lymphadenopathy. Supple, nontender, no meningeal signs. CARDIOVASCULAR: Tachycardic rate. Regular rhythm without murmurs, gallops, or rubs. RESPIRATORY: Diffuse wheezes throughout. GASTROINTESTINAL: Abdomen soft, non-tender, nondistended. No hepato-splenomegaly , or palpable masses. No guarding. MUSCULOSKELETAL: Extremities without clubbing, cyanosis, or edema. No joint tenderness, effusion, or edema noted. No calf tenderness. Negative Homans sign bilaterally. NEUROLOGICAL: Awake and alert. Cranial nerves II through XII intact. Motor and sensory grossly within normal limits. Five out of 5 muscle strength in all muscle groups. Normal speech. Laboratory Laboratory Tests Test 02/20/17 02/20/17 18:45 21:00 White Blood Count 17.7 Red Blood Count 4.84 Hemoglobin 13.7 Hematocrit 42.3 Mean Corpuscular Volume 87.3 Mean Corpuscular Hemoglobin 28.2 Mean Corpuscular Hemoglobin 32.3 Concent Red Cell Distribution Width 14.0 Platelet Count 326 Mean Platelet Volume 8.1 Neutrophils (%) (Auto) 66.6 Lymphocytes (%) (Auto) 22.8 Monocytes (%) (Auto) 8.8 Eosinophils (%) (Auto) 1.0 Basophils (%) (Auto) 0.8 Neutrophils # (Auto) 11.8 Lymphocytes # (Auto) 4.0 Monocytes # (Auto) 1.6 Eosinophils # (Auto) 0.2 Basophils # (Auto) 0.1 CBC Comment DIFF FINAL Differential Comment Prothrombin Time 10.8 Prothromb Time International 1.0 Ratio Activated Partial 27.6 Thromboplast Time Sodium Level 133 Potassium Level 3.0 Chloride Level 85 Carbon Dioxide Level 36.5 Anion Gap 12 Blood Urea Nitrogen 21 Creatinine 1.42 Estimat Glomerular Filtration 37 Rate Random Glucose 139 Calcium Level 9.6 Magnesium Level 2.0 Total Bilirubin 0.3 Aspartate Amino Transf 28 (AST/SGOT) Alanine Aminotransferase 24 (ALT/SGPT) Alkaline Phosphatase 107 Total Creatine Kinase 58 Troponin I 0.03 B-Type Natriuretic Peptide 62 Total Protein 6.9 Albumin 3.1 Urine Color YELLOW Urine Turbidity HAZY Urine pH 6.5 Urine Specific [place] 1.021 Urine Protein 300 Urine Glucose (UA) 300 Urine Ketones NEG Urine Occult Blood TRACE Urine Nitrite NEG Urine Bilirubin NEG Urine Urobilinogen LESS THAN 2.0 Urine Leukocyte Esterase NEG Urine RBC 1 Urine WBC 2 Urine Squamous Epithelial 6 Cells Microscopic Urinalysis Comment CULT NOT INDICATED Result Diagram: 02/20/17184402/20/171844 Imaging Last Impressions Chest X-Ray 02/20/17 1839 Signed Impressions: Service Date/Time: Monday, February 20, 2017 18:59 - CONCLUSION: Persistent masslike area seen in the left upper lung. Magdy Lau MD CT Angiography 02/20/17 0000 Signed Impressions: Service Date/Time: Monday, February 20, 2017 20:54 - CONCLUSION: 1. No pulmonary embolus. 2. 1.4 cm irregular mass at the superior segment of the left lower lobe. This is mildly increased in size since the prior examination. Given the increase in size and its morphology, this needs to be viewed with suspicion for possible malignancy. It is amenable to percutaneous biopsy. 2. Nonspecific 1.2 cm area of density at the lateral right mid lung. This area and the left lower lobe mass could both be noninvasively further evaluated with a PET FDG study. 3. Widespread emphysematous change seen throughout the lungs. Magdy Lau MD Assessment and Plan Assessment and Plan 66-year-old female with oxygen dependent COPD presents with a COPD exacerbation. Also found to have increasing lung mass on CT scan. Code Status Full Problem List: (1) Acute exacerbation of chronic obstructive pulmonary disease (COPD) Status: Acute Plan: Alternating albuterol and DuoNeb treatments Prednisone 40 mg by mouth daily Levaquin 750 mg IV every 24 hours Oxygen as needed Incentive spirometer Sputum culture (2) Lung mass Status: Acute Plan: CT scan shows 1.) 1.4 cm irregular mass at the superior segment of the left lower lobe. This is increased in size since the prior examination. This needs to be viewed with suspicion for possible malignancy. It is amenable to percutaneous biopsy. 2.) Nonspecific 1.2 cm area of density at the lateral right mid lung. This area and the left lower lobe mass could both be noninvasively further evaluated with a PET FDG study. Patient states she does not want surgery. However, she may be amenable to biopsy. (3) JEFF (acute kidney injury) Status: Acute Plan: Prerenal from decreased by mouth intake. IV fluids as below. (4) FEN/PPX Status: Acute Plan: Fluids: Normal saline 100 mL's per hour Electrolytes: Monitor and replace as needed Nutrition: Regular diet Prophylaxis: Continue eliquis, bilateral SCDs Chronic medical problems: Atrial fibrillation: Continue Eliquis; continue home diltiazem 60 mg every 6 hours scheduled Physician Certification 2 Midnight Certification Type: Admission for Inpatient Services Order for Inpatient Services The services are ordered in accordance with Medicare regulations or non- Medicare payer requirements, as applicable. In the case of services not specified as inpatient-only, they are appropriately provided as inpatient services in accordance with the 2-midnight benchmark. Estimated LOS (days): 2 days is the estimated time the patient will need to remain in the hospital, assuming treatment plan goals are met and no additional complications. Post-Hospital Plan: Not yet determined Link Winslow MD R2 February 20, 2017 23:07
[2017-02-20 23:11] VITALS: BP 136/102; PULSE 110; RESP 18; O2SAT 98
[2017-02-20 23:37] VITALS: O2SAT 97
[2017-02-20] MEDS ORDERED: IBUPROFEN 400 MG TAB PO PRN (23:45)
[2017-02-20] MEDS ORDERED: ACETAMINOPHEN 325 MG TAB PO PRN (23:45)
[2017-02-20] MEDS ORDERED: NALOXONE HCL 0.4 MG/ML AMP IV PRN ×2 (23:45)
[2017-02-20] MEDS ORDERED: ONDANSETRON HCL 4 MG/2 ML VIAL IVP PRN (23:45)
[2017-02-20] MEDS ORDERED: MORPHINE SULFATE 4 MG/ML INJ IV PRN (23:45)
[2017-02-20] MEDS ORDERED: RESP: ALBUTEROL 2.5 MG/3 ML NEB (PRN) INH ×2 (23:45)
[2017-02-20] MEDS ORDERED: SODIUM CHLORIDE 0.9% FLUSH 10 ML FLUSH IV FLUSH PRN ×2 (23:45)
[2017-02-20] MEDS ORDERED: ACETAMINOPHEN/HYDROcodone 325 MG/5 MG TAB PO PRN (23:45)
[2017-02-20 23:53] VITALS: BP 180/78; PULSE 100; RESP 20; O2SAT 97
[2017-02-21] VITALS (10 sets, daily range): BP systolic 139–204; BP diastolic 64–94; PULSE 92–111; RESP 19–20; TEMP 96.1–97.9; O2SAT 97–99
[2017-02-21] MEDS: SODIUM CHLOR 0.9% 1000 ML INJ 1,000 ML IV SCH ×3 (00:27→20:14)
[2017-02-21] MEDS: DILTIAZEM HCL 60 MG TAB PO SCH ×4 (00:28→20:13)
[2017-02-21] MEDS ORDERED: LEVOFLOXACIN 750 MG PREMIX INJ 150 ML IV SCH (01:00)
[2017-02-21] MEDS ORDERED: POTASSIUM CHLORIDE 10 MEQ CONTROLLED RELEASE TAB PO ONE (04:00)
[2017-02-21] MEDS: RESP: ALBUTEROL 2.5 MG/IPRATROPIUM 0.5 MG NEB (SCH) INH ×4 (04:52→23:40)
[2017-02-21] MEDS: cloNIDine HCL 0.1 MG TAB PO PRN ×2 (05:03→20:15)
[2017-02-21] MEDS: ACETAMINOPHEN/HYDROcodone 325 MG/10 MG TAB PO PRN ×3 (06:06→22:49)
[2017-02-21 07:10] LABS: BASOPHIL % 0.2 % (0.0-2.0); EOSINOPHIL % 0.1 % (0.0-4.0); HEMATOCRIT 40.6 % (35.0-46.0); HEMO FLAGS DIFF FINAL; LYMPH % 9.6 % (9.0-44.0); LYMPHOCYTE # 1.5 TH/MM3 (1.0-4.8); MEAN CELL VOLUME 87.6 FL (80.0-100.0); MONO % 2.3 % (0.0-8.0); NEUT % 87.8 % (16.0-70.0); PLATELET COUNT 283 TH/MM3 (150-450); RED BLOOD COUNT 4.63 MIL/MM3 (4.00-5.30); RED CELL DISTRIBUTION WIDTH 13.7 % (11.6-17.2)
[2017-02-21 07:25] LABS: BICARBONATE 29.9 MEQ/L (21.0-32.0); POTASSIUM 3.5 MEQ/L (3.5-5.1)
[2017-02-21] MEDS: APIXABAN 2.5 MG TABLET PO SCH ×2 (08:12→20:14)
[2017-02-21] MEDS: SODIUM CHLORIDE 0.9% FLUSH 10 ML FLUSH IV FLUSH SCH ×4 (08:12→20:15)
[2017-02-21] MEDS: CALCIUM CARBONATE 500 MG CHEWABLE TAB CHEW SCH ×3 (08:12→18:00)
[2017-02-21] MEDS: predniSONE 20 MG TAB PO SCH (08:12)
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
[2017-02-21 15:33] LABS: BICARBONATE 31.9 MEQ/L (21.0-32.0); POTASSIUM 3.5 MEQ/L (3.5-5.1)
--- NOTE | 2017-02-21 16:50 | EKG ---
Date Performed: 02/21/2017 Time Performed: 00:14:08 PTAGE: 66 years EKG: Sinus rhythm POSSIBLE LEFT ATRIAL ENLARGEMENT NONSPECIFIC ST & T-WAVE ABNORMALITY Compared to previous tracing, t he patient is now back in sinus rhythm BORDERLINE ECG NO PREVIOUS TRACING DOCTOR: Kamala Carrillo Interpretating Date/Time 02/21/2017 16:47:44
--- NOTE | 2017-02-21 16:50 | EKG ---
Date Performed: 02/20/2017 Time Performed: 19:15:54 PTAGE: 66 years EKG: ATRIAL FLUTTER/TACHYCARDIA ST DEVIATION AND MODERATE T-WAVE ABNORMALITY, CONSIDER INFERIOR ISCHEMIA Compared to previous tracing, the patient is now in atrial flutter ABNORMAL ECG PREVIOUS TRACING : 11/28/2016 07.10 DOCTOR: Kamala Carrillo Interpretating Date/Time 02/21/2017 16:47:27
[2017-02-21 22:00] LABS: BICARBONATE 36.5 MEQ/L (21.0-32.0); POTASSIUM 3.6 MEQ/L (3.5-5.1)
[2017-02-22] VITALS (11 sets, daily range): BP systolic 126–193; BP diastolic 60–91; PULSE 70–99; RESP 18–20; TEMP 96–97.5; O2SAT 95–98
[2017-02-22] MEDS: DILTIAZEM HCL 60 MG TAB PO SCH ×5 (00:36→22:59)
[2017-02-22] MEDS: RESP: ALBUTEROL 2.5 MG/IPRATROPIUM 0.5 MG NEB (SCH) INH ×6 (03:19→23:39)
[2017-02-22] MEDS: cloNIDine HCL 0.1 MG TAB PO PRN (05:23)
[2017-02-22] MEDS: ACETAMINOPHEN/HYDROcodone 325 MG/10 MG TAB PO PRN ×3 (05:23→22:59)
[2017-02-22] MEDS: SODIUM CHLOR 0.9% 1000 ML INJ 1,000 ML IV SCH ×2 (05:24→15:32)
[2017-02-22] MEDS: APIXABAN 2.5 MG TABLET PO SCH ×2 (07:42→19:39)
[2017-02-22] MEDS: predniSONE 20 MG TAB PO SCH (07:44)
[2017-02-22] MEDS: CALCIUM CARBONATE 500 MG CHEWABLE TAB CHEW SCH ×3 (07:44→16:47)
[2017-02-22] MEDS: SODIUM CHLORIDE 0.9% FLUSH 10 ML FLUSH IV FLUSH SCH ×4 (07:45→19:41)
--- NOTE | 2017-02-22 08:47 | HHI.FPPN ---
Subjective Remarks No acute events overnight. Afebrile. BPs have been elevated ranging 130s-204/60s -90s over past 24 hours, patient was given 0.1mg clonidine po x3. Patient remains in sinus rhythm. She states she is feeling much better overall. Denies fevers, CP, SOB. States she has not had much of a cough over the past day. She continues to state she would not want surgery or other aggressive measures regarding her lung mass. Her only other concern is wanting to ambulate more. ( Lane Gruber MD R1) Objective Vitals Vital Signs Date Time Temp Pulse Resp B/P Pulse Ox O2 Delivery O2 Flow Rate FiO2 02/22/17 08:29 96.3 76 19 141/75 95 02/22/17 08:02 98 Nasal Cannula 2.50 02/22/17 04:00 96.3 99 20 175/91 96 02/22/17 00:00 96.0 86 19 138/65 98 02/21/17 21:29 Nasal Cannula 2.00 02/21/17 20:00 96.3 96 19 204/93 98 02/21/17 20:00 93 02/21/17 15:50 96.8 98 20 139/64 98 02/21/17 11:50 97.1 99 20 142/80 99 02/21/17 11:26 98 Nasal Cannula 2.00 02/21/17 09:08 92 I/O 02/21/17 02/21/17 02/21/17 02/22/17 02/22/17 02/22/17 07:00 15:00 23:00 07:00 15:00 23:00 Intake Total 842 ml 1460 ml 441 ml Output Total 500 ml Balance 842 ml 960 ml 441 ml Intake Oral 480 ml 960 ml IV Total 362 ml 500 ml 441 ml Output Urine Total 500 ml # Voids 2 4 # Bowel Movements 0 (Lane Gruber MD R1) Result Diagram: 02/21/1762402/21/172117 Objective Remarks GENERAL: NAD. Receiving a breathing treatment. No difficulty speaking full sentences. Sitting up in bed. HEENT: NCAT, EOMI, no scleral icterus, no conjunctival injection. MMM. Nasal cannula in place after breathing treatment completed. NECK: Supple, no meningeal signs. CV: RRR. No murmurs. S1 S2 CHEST/PULM: CTAB. No crackles, no wheezes. No retractions or accessory muscle use. ABD/GI: +BS, soft, nontender, nondistended EXT: 2+ DP pulses. No calf tenderness, no edema NEURO: Awake, alert. Normal muscle tone. Grossly nonfocal. SKIN: No rashes, no jaundice. PSYCH: Mood and affect are appropriate. Speech fluent. (Lane Gruber MD R1) A/P Assessment and Plan 66-year-old female with oxygen dependent COPD admitted due to a COPD exacerbation. Also found to have increasing lung mass on CT scan. Discharge Planning Anticipate discharge likely to home in 1-2 days following discussion with palliative care regarding goals of care (Lane Gruber MD R1) Attending Attestation Patient seen and examined, discussed with resident team. I agree with assessment and management as documented and discussed with me. Mrs. Snyder reports she is feeling better, although her breathing is not back to baseline. + SOB with minimal exertion / work with PT. She is concerned today about tremors, which started 1 month ago. She relates these to anxiety. On exam, questionable cogwheeling - reexamine in AM. Pt again asserts that she would not want treatment for suspect lung cancer. (Parisa Sam MD) Problem List: (1) Acute exacerbation of chronic obstructive pulmonary disease (COPD) Status: Resolved Plan: Alternating albuterol and DuoNeb treatments Prednisone 40 mg by mouth daily Continue Levaquin started 02/21/17, now transitioned to PO Continue supplemental oxygen as needed to maintain O2 sats between 88-92% Incentive spirometer Sputum culture pending PT (2) Leukocytosis Status: Acute Plan: Consider secondary to stress response from COPD exacerbation vs malignancy vs steroid response. Uptrended today to 26.3 Patient has been afebrile, clinically appears to be improving Levaquin as ordered Ordered blood culture today 02/22, pending Sputum culture pending UA obtained 02/20, not indicating culture Ordered peripheral smear, pending Continue to monitor (3) Lung mass Status: Chronic Plan: CT scan shows 1.) 1.4 cm irregular mass at the superior segment of the left lower lobe. This is increased in size since the prior examination. This needs to be viewed with suspicion for possible malignancy. It is amenable to percutaneous biopsy. 2.) Nonspecific 1.2 cm area of density at the lateral right mid lung. This area and the left lower lobe mass could both be noninvasively further evaluated with a PET FDG study. Patient states she does not want surgery nor chemotherapy. Palliative care consulted and has met with patient Patient continues to state she is a DNR/DNI and does not want a biopsy or treatment even given the knowledge that she has cancer (4) Hyponatremia Status: Acute Plan: Suspect SIADH from lung mass, but consider also prerenal/dehydration vs other. Sodium level 133 -> 129 -> 131 -> 133 -> 133 Urine osm 392; serum osm 291 Urine random Na of 30 Will change IV fluid (increase vs d/c & fluid restrict) pending repeat BMP (5) JEFF (acute kidney injury) Status: Acute Plan: Cr 1.42 on admission, 1.31 this a.m. Patient had normal creatinine level of 0.69 in 11/30/16 Follow-up renal ultrasound findings (6) HTN (hypertension) Status: Chronic Plan: Anticipate increase in blood pressure with steroid administration. Continue home medications; continue PRN as ordered. (7) Hypokalemia Status: Resolved Plan: Improved. Will monitor electrolytes. Fluids: Continue normal saline at 100 mL/hour Electrolytes: Monitor and replete as needed Nutrition: Regular diet Continue Eliquis 2.5 mg by mouth twice a day GI prophylaxis: Protonix 40 mg by mouth daily (Lane Gruber MD R1) Problem Qualifiers (1) HTN (hypertension): Qualified Code: I10 - Essential hypertension Lane Gruber MD R1 February 22, 2017 08:47 Parisa Sam MD February 23, 2017 06:47
[2017-02-22 09:54] LABS: AUTOMATED NEUTROPHIL # 21.7 TH/MM3 (1.8-7.7); BASOPHIL # 0.1 TH/MM3 (0-0.2); BASOPHIL % 0.2 % (0.0-2.0); EOSINOPHIL % 0.1 % (0.0-4.0); HEMO FLAGS DIFF FINAL; LYMPH % 10.3 % (9.0-44.0); LYMPHOCYTE # 2.7 TH/MM3 (1.0-4.8); MEAN CELL VOLUME 88.3 FL (80.0-100.0); MEAN CORPUSCULAR HEMOGLOBIN 28.1 PG (27.0-34.0); MEAN CORPUSCULAR HGB CONC 31.8 % (32.0-36.0); MONO % 6.7 % (0.0-8.0); NEUT % 82.7 % (16.0-70.0); PLATELET COUNT 277 TH/MM3 (150-450); RED BLOOD COUNT 3.96 MIL/MM3 (4.00-5.30); RED CELL DISTRIBUTION WIDTH 13.6 % (11.6-17.2); WHITE BLOOD COUNT 26.3 TH/MM3 (4.0-11.0)
[2017-02-22 10:19] LABS: BICARBONATE 31.1 MEQ/L (21.0-32.0); POTASSIUM 3.9 MEQ/L (3.5-5.1)
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
[2017-02-22] MEDS: amLODIPine BESYLATE 5 MG TAB PO SCH (11:45)
[2017-02-22] MEDS: clonazePAM 0.5 MG TAB PO SCH ×2 (15:15→21:48)
[2017-02-22] MEDS: SENNOSIDES 8.6 MG TAB PO PRN (16:48)
[2017-02-22] MEDS: PANTOPRAZOLE SOD 40 MG DELAYED RELEASE TAB PO SCH (19:38)
--- NOTE | 2017-02-22 21:37 | RADRPT ---
EXAM DATE/TIME: 02/22/2017 19:39 [facility] COMPARISON: No previous studies available for comparison. INDICATIONS : Increased lab values. MEDICAL HISTORY : Chronic obstructive pulmonary disease. Gastroesophageal reflux disease. Renal calculi. A-fib. Arthrit is. Diabetes type 2. SURGICAL HISTORY : Tonsillectomy. Hysterectomy. ENCOUNTER: Initial ACUITY: 1 day PAIN SCORE: 0/10 LOCATION: Bilateral flank MEASUREMENTS: RIGHT KIDNEY: 8.1 x 3.5 x 3.5 cm LEFT KIDNEY: 11.8 x 5.5 x 5.5 cm FINDINGS: Right kidney slightly decreased in size. Left kidney mildly echogenic with a 6 mm cyst in the midpole . Bladder within normal limits. CONCLUSION: 1. Right kidney slightly decreased in size. Probable medical renal disease left kidney without hydron ephrosis. Tiny left renal cyst. Ronaldo Ashford MD on February 22, 2017 at 21:35 Board Certified Radiologist. This report was verified electronically.
[2017-02-23] VITALS (8 sets, daily range): BP systolic 138–194; BP diastolic 77–95; PULSE 83–104; RESP 18–22; TEMP 96.2–97.5; O2SAT 92–99
[2017-02-23] MEDS ORDERED: LEVOFLOXACIN 750 MG PREMIX INJ 150 ML IV SCH (01:00)
[2017-02-23] MEDS: RESP: ALBUTEROL 2.5 MG/IPRATROPIUM 0.5 MG NEB (SCH) INH ×4 (03:49→14:36)
[2017-02-23] MEDS: ACETAMINOPHEN/HYDROcodone 325 MG/10 MG TAB PO PRN ×2 (04:39→08:27)
[2017-02-23] MEDS: clonazePAM 0.5 MG TAB PO SCH ×4 (04:39→18:50)
[2017-02-23] MEDS: DILTIAZEM HCL 60 MG TAB PO SCH ×3 (04:39→18:32)
[2017-02-23] MEDS: SODIUM CHLOR 0.9% 1000 ML INJ 1,000 ML IV SCH ×2 (04:40→11:32)
[2017-02-23] MEDS ORDERED: LEVOFLOXACIN 750 MG TAB PO SCH (08:00)
--- NOTE | 2017-02-23 08:24 | HHI.FPPN ---
Subjective Remarks No acute events overnight. Remains afebrile, BPs ranging 120s-190s/69s-90s over past 24 hours. O2 saturations appropriate on 2L NC. She states she is feeling improved overall. Her primary concerns this morning is of wanting to ambulate more and feel stronger before going home. She also has a concern about a tremor. She states this just started occurring about 8 or 9 days ago. She denies having this tremor or issues with tremor before this onset. She states she feels very anxious and this may be what is causing it. She states her tremor has not gotten any worse since being hospitalized. States the klonopin has been working well to reduce symptoms of anxiety and states this last for about 8 hours until the next dose is due. Denies fevers, CP, SOB. (Lane Gruber MD R1) Objective Vitals Vital Signs Date Time Temp Pulse Resp B/P Pulse Ox O2 Delivery O2 Flow Rate FiO2 02/23/17 07:25 97 Nasal Cannula 2.00 02/23/17 04:00 97.5 88 18 138/77 94 02/23/17 03:52 96 Nasal Cannula 2.00 02/23/17 00:00 97.4 102 20 145/95 96 02/22/17 23:43 98 Nasal Cannula 2.00 02/22/17 20:19 98 Nasal Cannula 2.50 02/22/17 20:00 97.5 74 18 126/60 96 02/22/17 20:00 83 02/22/17 16:37 96.6 78 19 137/62 97 02/22/17 13:44 164/77 02/22/17 12:04 96.1 75 20 193/85 98 02/22/17 08:53 70 02/22/17 08:29 96.3 76 19 141/75 95 I/O 02/22/17 02/22/17 02/22/17 02/23/17 02/23/17 02/23/17 07:00 15:00 23:00 07:00 15:00 23:00 Intake Total 441 ml 480 ml 1020 ml 1775 ml Output Total 800 ml 500 ml 800 ml Balance 441 ml -320 ml 520 ml 975 ml Intake Oral 480 ml 720 ml 1200 ml IV Total 441 ml 300 ml 575 ml Output Urine Total 800 ml 500 ml 800 ml (Lane Gruber MD R1) Result Diagram: 02/22/17 0930 02/22/17 0930 Objective Remarks GENERAL: NAD. Sitting up in bed. NC in place. Talking in full sentences. HEENT: NCAT, EOMI, no scleral icterus, no conjunctival injection. MMM. NECK: Supple, no meningeal signs. CV: RRR. No murmurs. S1 S2 CHEST/PULM: CTAB. No crackles, no wheezes. No retractions or accessory muscle use. ABD/GI: +BS, soft, nontender, nondistended EXT: 2+ DP pulses. No calf tenderness, no edema NEURO: Awake, alert. office chair assembler grossly intact. Normal muscle tone. Tremor of left arm noted, resting at times but not consistently a resting tremor. Does appear to be essential as well. Able to do finger to nose testing bilaterally with some degree of difficulty. No cogwheel rigidity. 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 SKIN: No rashes, no jaundice. PSYCH: Mood and affect are appropriate. Speech fluent. (Lane Gruber MD R1) A/P Assessment and Plan 66-year-old female with oxygen dependent COPD admitted due to a COPD exacerbation. Also found to have increasing lung mass on CT scan. Discharge Planning Stable for discharge home today with home health care for PT (Lane Gruber MD R1) Attending Attestation Patient seen and examined, discussed with resident team. I agree with assessment and management as documented and discussed with me. Pt reports breathing is back to normal. She is nervous about returning home. She reports that Klonopin at low dose helped her tremor. Unable to palpate cogwheel rigidity today. (Parisa Sam MD) Problem List: (1) Acute exacerbation of chronic obstructive pulmonary disease (COPD) Status: Resolved Plan: Alternating albuterol and DuoNeb treatments Prednisone 40 mg by mouth daily Continue Levaquin by mouth started 02/21/17 Continue supplemental oxygen as needed to maintain O2 sats between 88-92% Incentive spirometer Sputum culture pending PT (2) Leukocytosis Status: Acute Plan: Consider secondary to stress response from COPD exacerbation vs malignancy vs steroid response. Patient has been afebrile, clinically appears to be improving Downtrended today Levaquin as ordered, complete course as outpatient Blood culture 02/22 no growth after one day Sputum culture pending UA obtained 02/20, not indicating culture Ordered peripheral smear, pending, will follow up with patient Repeat CBC ordered for outpatient (3) Lung mass Status: Chronic Plan: CT scan shows 1.) 1.4 cm irregular mass at the superior segment of the left lower lobe. This is increased in size since the prior examination. This needs to be viewed with suspicion for possible malignancy. It is amenable to percutaneous biopsy. 2.) Nonspecific 1.2 cm area of density at the lateral right mid lung. This area and the left lower lobe mass could both be noninvasively further evaluated with a PET FDG study. Patient states she does not want surgery nor chemotherapy. Palliative care consulted and has met with patient Patient continues to state she is a DNR/DNI and does not want a biopsy or treatment even given the knowledge that she has cancer (4) Hyponatremia Status: Acute Plan: Suspect SIADH from lung mass, but consider also prerenal/dehydration vs other. Sodium level 133 -> 129 -> 131 -> 133 -> 133 -> 135 Urine osm 392; serum osm 291 Urine random Na of 30 BMP ordered for outpatient (5) JEFF (acute kidney injury) Status: Acute Plan: Cr 1.42 on admission, downtrending to 1.06 02/23 Patient had normal creatinine level of 0.69 in 11/30/16 Renal US showing right kidney slightly decreased in size, probably medical renal disease left kidney without hydronephrosis; tiny left renal cyst (6) HTN (hypertension) Status: Chronic Plan: Continue amlodipine 5 mg po daily as outpatient (7) Hypokalemia Status: Resolved Plan: Resolved Fluids: PO Electrolytes: Monitor and replete as needed Nutrition: Regular diet Continue Eliquis 2.5 mg by mouth twice a day GI prophylaxis: Protonix 40 mg by mouth daily (Lane Gruber MD R1) Problem Qualifiers (1) HTN (hypertension): Qualified Code: I10 - Essential hypertension Lane Gruber MD R1 February 23, 2017 08:24 Parisa Sam MD February 23, 2017 15:55
[2017-02-23] MEDS: predniSONE 20 MG TAB PO SCH (08:26)
[2017-02-23] MEDS: amLODIPine BESYLATE 5 MG TAB PO SCH (08:26)
[2017-02-23] MEDS: APIXABAN 2.5 MG TABLET PO SCH (08:26)
[2017-02-23] MEDS: PANTOPRAZOLE SOD 40 MG DELAYED RELEASE TAB PO SCH (08:26)
[2017-02-23] MEDS: CALCIUM CARBONATE 500 MG CHEWABLE TAB CHEW SCH ×3 (08:27→18:32)
[2017-02-23] MEDS: SENNOSIDES 8.6 MG TAB PO PRN (08:28)
[2017-02-23] MEDS: SODIUM CHLORIDE 0.9% FLUSH 10 ML FLUSH IV FLUSH SCH ×2 (08:38)
[2017-02-23 09:17] LABS: AUTOMATED NEUTROPHIL # 15.2 TH/MM3 (1.8-7.7); BASOPHIL % 0.2 % (0.0-2.0); EOSINOPHIL # 0.1 TH/MM3 (0-0.4); EOSINOPHIL % 0.5 % (0.0-4.0); HEMATOCRIT 35.3 % (35.0-46.0); LYMPH % 23.3 % (9.0-44.0); LYMPHOCYTE # 5.2 TH/MM3 (1.0-4.8); MEAN CELL VOLUME 87.4 FL (80.0-100.0); MEAN CORPUSCULAR HEMOGLOBIN 28.3 PG (27.0-34.0); MEAN CORPUSCULAR HGB CONC 32.4 % (32.0-36.0); MONO % 7.4 % (0.0-8.0); NEUT % 68.6 % (16.0-70.0); PLATELET COUNT 324 TH/MM3 (150-450); RED BLOOD COUNT 4.04 MIL/MM3 (4.00-5.30); RED CELL DISTRIBUTION WIDTH 14.1 % (11.6-17.2); WHITE BLOOD COUNT 22.2 TH/MM3 (4.0-11.0)
--- NOTE | 2017-02-23 09:21 | HHI.FF ---
Face to Face Verification Diagnosis: (1) COPD (chronic obstructive pulmonary disease) Physical Therapy Order: Evaluate and Treat, Improve ambulation, Strength and gait training Home Health Nursing Order: Medical education Oxygen administration education I have seen patient Leah Snyder on 02/23/17. My clinical findings support the need for the requested home health care services because: Patient has SOB I certify that my clinical findings support that this patient is homebound because: Unsteady gait/balance Lane Gruber MD R1 February 23, 2017 09:21
[2017-02-23 09:27] LABS: HEMO FLAGS AUTO DIFF
[2017-02-23] MEDS ORDERED: CLON.5 PO (10:05)
[2017-02-23] MEDS ORDERED: DILT60TA33 PO (10:05)
--- NOTE | 2017-02-23 10:07 | HHI.DCPOC ---
Discharge Care Plan Diagnosis: (1) Acute exacerbation of chronic obstructive pulmonary disease (COPD) (2) HTN (hypertension) (3) Lung mass (4) Leukocytosis (5) Hyponatremia (6) Anxiety (7) Hypokalemia (8) Lung mass Your Health Problems Are: Anxiety Cough Shortness of Breath Goals to Promote Your Health * To prevent worsening of your condition and complications, follow up with your primary care physician. Directions to Meet Your Goals Take your medications as prescribed Follow your dietary instruction Follow activity as directed Keep your appointments as scheduled Take your immunizations and boosters as scheduled If your symptoms worsen call your PCP, if no PCP go to Urgent Care Center or Emergency Room Smoking is Dangerous to Your Health. Avoid second hand smoke Call the 24-hour hour crisis hotline for domestic abuse at Lane Gruber MD R1 February 23, 2017 10:07
[2017-02-23 10:13] LABS: ALKALINE PHOSPHATASE 106 U/L (45-117); ALT (GPT) 37 U/L (10-53); ANION GAP 8 MEQ/L (5-15); AST (GOT) 27 U/L (15-37); BICARBONATE 33.9 MEQ/L (21.0-32.0); BLOOD UREA NITROGEN 27 MG/DL (7-18); CHLORIDE 93 MEQ/L (98-107); GLOMERULAR FILTRATION RATE 52 ML/MIN (>89); MAGNESIUM 2.2 MG/DL (1.5-2.5); POTASSIUM 3.6 MEQ/L (3.5-5.1); SODIUM (NA) 135 MEQ/L (136-145); TOTAL BILIRUBIN ADULT 0.1 MG/DL (0.2-1.0)
[2017-02-23 10:52] LABS: BANDS 3 % (0-6); NEUTROPHIL # MANUAL DIFF 17.5 TH/MM3 (1.8-7.7); PLATELET ESTIMATE SMEAR NORMAL (NORMAL); PLATELET MORPHOLOGY NORMAL (NORMAL); POLYS (SEG NEUTROPHILS) 76 % (16-70); SCAN/DIFF FINAL DIFF MANUAL; WBC DIFF SAMPLE 100
[2017-02-23] MEDS ORDERED: AMLO5 PO (11:27)
[2017-02-23] MEDS ORDERED: PANT40TA3 PO (11:28)
[2017-02-23] MEDS ORDERED: LEVA750T PO (11:35)
[2017-02-23] MEDS ORDERED: PRED20 PO (11:35)
--- NOTE | 2017-02-23 11:48 | HHI.DS ---
Discharge Summary Admission Date February 20, 2017 at 23:05 Discharge Date: February 23, 2017 Admitting Diagnosis COPD exacerbation, lung mass (1) Acute exacerbation of chronic obstructive pulmonary disease (COPD) Diagnosis: Principal Plan: Alternating albuterol and DuoNeb treatments Prednisone 40 mg by mouth daily Continue Levaquin by mouth started 02/21/17 Continue supplemental oxygen as needed to maintain O2 sats between 88-92% Incentive spirometer Sputum culture pending PT (2) Leukocytosis Diagnosis: Principal Plan: Consider secondary to stress response from COPD exacerbation vs malignancy vs steroid response. Patient has been afebrile, clinically appears to be improving Downtrended today Levaquin as ordered, complete course as outpatient Blood culture 02/22 no growth after one day Sputum culture pending UA obtained 02/20, not indicating culture Ordered peripheral smear, pending, will follow up with patient Repeat CBC ordered for outpatient (3) Lung mass Diagnosis: Secondary Plan: CT scan shows 1.) 1.4 cm irregular mass at the superior segment of the left lower lobe. This is increased in size since the prior examination. This needs to be viewed with suspicion for possible malignancy. It is amenable to percutaneous biopsy. 2.) Nonspecific 1.2 cm area of density at the lateral right mid lung. This area and the left lower lobe mass could both be noninvasively further evaluated with a PET FDG study. Patient states she does not want surgery nor chemotherapy. Palliative care consulted and has met with patient Patient continues to state she is a DNR/DNI and does not want a biopsy or treatment even given the knowledge that she has cancer (4) Hyponatremia Diagnosis: Principal Plan: Suspect SIADH from lung mass, but consider also prerenal/dehydration vs other. Sodium level 133 -> 129 -> 131 -> 133 -> 133 -> 135 Urine osm 392; serum osm 291 Urine random Na of 30 BMP ordered for outpatient (5) JEFF (acute kidney injury) Diagnosis: Principal Plan: Cr 1.42 on admission, downtrending to 1.06 02/23 Patient had normal creatinine level of 0.69 in 11/30/16 Renal US showing right kidney slightly decreased in size, probably medical renal disease left kidney without hydronephrosis; tiny left renal cyst (6) HTN (hypertension) Diagnosis: Principal Plan: Continue amlodipine 5 mg po daily as outpatient (7) Hypokalemia Diagnosis: Principal Plan: Resolved Fluids: PO Electrolytes: Monitor and replete as needed Nutrition: Regular diet Continue Eliquis 2.5 mg by mouth twice a day GI prophylaxis: Protonix 40 mg by mouth daily Consultants Palliative Care Brief History This is a 66-year-old female with history of oxygen dependent COPD, known pulmonary nodules, presents with difficulty breathing 1 day. She states that yesterday she "just could not breathe." She also says she couldn't pee and had a headache. She says all of that was too much. She denies fevers. No cough. No dysuria. During my interview, she is breathing much better after morphine and breathing treatment. She is hungry and feeling better. She is aware of the pulmonary nodules in her lungs from January 2016 CT scan. She states "I do not want to be cut on." Otherwise, she may be interested in getting a biopsy. CBC/BMP: 02/23/17 0801 02/23/17 0850 Significant Findings Laboratory Tests Test 02/20/17 02/20/17 02/21/17 02/21/17 18:45 21:00 06:25 14:10 White Blood Count 17.7 TH/MM3 16.0 TH/MM3 (4.0-11.0) (4.0-11.0) Monocytes (%) (Auto) 8.8 % (0.0-8.0) Neutrophils # (Auto) 11.8 TH/MM3 14.0 TH/MM3 (1.8-7.7) (1.8-7.7) Monocytes # (Auto) 1.6 TH/MM3 (0-0.9) Sodium Level 133 MEQ/L 129 MEQ/L 131 MEQ/L (136-145) (136-145) (136-145) Potassium Level 3.0 MEQ/L (3.5-5.1) Chloride Level 85 MEQ/L 85 MEQ/L 86 MEQ/L (98-107) (98-107) (98-107) Carbon Dioxide Level 36.5 MEQ/L (21.0-32.0) Blood Urea Nitrogen 21 MG/DL (7-18) 25 MG/DL (7-18) 25 MG/DL (7-18) Creatinine 1.42 MG/DL 1.69 MG/DL 1.50 MG/DL (0.50-1.00) (0.50-1.00) (0.50-1.00) Estimat Glomerular Filtration 37 ML/MIN (>89) 30 ML/MIN (>89) 35 ML/MIN (>89) Rate Random Glucose 139 MG/DL 282 MG/DL 311 MG/DL (74-106) (74-106) (74-106) Albumin 3.1 GM/DL (3.4-5.0) Urine Turbidity HAZY (CLEAR) Urine Protein 300 mg/dL (NEG-TRACE) Urine Glucose (UA) 300 mg/dL (NEG) Urine Occult Blood TRACE (NEG) Neutrophils (%) (Auto) 87.8 % (16.0-70.0) Test 02/21/17 02/22/17 02/23/17 02/23/17 21:18 09:30 08:01 08:50 Sodium Level 133 MEQ/L 133 MEQ/L 135 MEQ/L (136-145) (136-145) (136-145) Chloride Level 87 MEQ/L 91 MEQ/L 93 MEQ/L (98-107) (98-107) (98-107) Carbon Dioxide Level 36.5 MEQ/L 33.9 MEQ/L (21.0-32.0) (21.0-32.0) Blood Urea Nitrogen 23 MG/DL (7-18) 25 MG/DL (7-18) 27 MG/DL (7-18) Creatinine 1.51 MG/DL 1.31 MG/DL 1.06 MG/DL (0.50-1.00) (0.50-1.00) (0.50-1.00) Estimat Glomerular Filtration 35 ML/MIN (>89) 41 ML/MIN (>89) 52 ML/MIN (>89) Rate Random Glucose 292 MG/DL 259 MG/DL 139 MG/DL (74-106) (74-106) (74-106) White Blood Count 26.3 TH/MM3 22.2 TH/MM3 (4.0-11.0) (4.0-11.0) Red Blood Count 3.96 MIL/MM3 (4.00-5.30) Hemoglobin 11.1 GM/DL 11.4 GM/DL (11.6-15.3) (11.6-15.3) Mean Corpuscular Hemoglobin 31.8 % Concent (32.0-36.0) Neutrophils (%) (Auto) 82.7 % (16.0-70.0) Neutrophils # (Auto) 21.7 TH/MM3 15.2 TH/MM3 (1.8-7.7) (1.8-7.7) Monocytes # (Auto) 1.8 TH/MM3 1.6 TH/MM3 (0-0.9) (0-0.9) Lymphocytes # (Auto) 5.2 TH/MM3 (1.0-4.8) Neutrophils % (Manual) 76 % (16-70) Neutrophils # (Manual) 17.5 TH/MM3 (1.8-7.7) Total Bilirubin 0.1 MG/DL (0.2-1.0) Albumin 3.2 GM/DL (3.4-5.0) Imaging 02/20 CT angiography showing no pulmonary embolus, 1.4 cm irregular mass at the superior segment of the left lower lobe is mildly increased in size since prior examination. Given the increase in size it's morphology, this needs to be viewed with suspicion for possible malignancy. Is amenable to percutaneous biopsy. Nonspecific 1.2 cm area of density at the lateral right mid lung. This area in the left lower lobe mass could both be noninvasively further evaluated with a PET FDG study. Widespread emphysematous changes seen throughout the lungs. 02/20 chest x-ray showing persistent masslike area seen in the left upper lung 02/22 renal ultrasound showing right kidney slightly decreased in size. Probable medical renal disease left kidney without hydronephrosis. Tiny left renal cyst. PE at Discharge GENERAL: NAD. Sitting up in bed. NC in place. Talking in full sentences. HEENT: NCAT, EOMI, no scleral icterus, no conjunctival injection. MMM. NECK: Supple, no meningeal signs. CV: RRR. No murmurs. S1 S2 CHEST/PULM: CTAB. No crackles, no wheezes. No retractions or accessory muscle use. ABD/GI: +BS, soft, nontender, nondistended EXT: 2+ DP pulses. No calf tenderness, no edema NEURO: Awake, alert. social services specialist grossly intact. Normal muscle tone. Tremor of left arm noted, resting at times but not consistently a resting tremor. Does appear to be essential as well. Able to do finger to nose testing bilaterally with some degree of difficulty. No cogwheel rigidity. 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 SKIN: No rashes, no jaundice. PSYCH: Mood and affect are appropriate. Speech fluent. Hospital Course Patient was given Solumedrol 125 mg IV x1, then continued with prednisone 40 mg po daily during inpatient stay. Started on Levaquin, initially IV and transitioned to PO. Patient was started on amlodipine 5 mg po daily for hypertension which seemed to improve after starting this. Patient did have a tremor primarily of her left hand, likely due to a component of anxiety contributing to this. Patient was started on klonopin 0.5 mg po q8h which patient did benefit from. The patient met with palliative care after her lung mass was found to have an increased size compared to a previous study, the patient stated she would not like a biopsy as she would refuse surgery and also would not like chemotherapy. Palliative care met with patient to discuss goals. Patient stated she would like to continue to be a DNR/DNI. Physical therapy evaluated the patient, recommending home with home health care for physical therapy. Patient did not have any complications during her inpatient stay. She remained stable on 2 L of oxygen via nasal cannula. Pt Condition on Discharge: Stable Discharge Disposition: Disch w/ Home Health Serv Discharge Instructions DIET: Follow Instructions for: Heart Healthy Diet Activities you can perform: Weight Bearing as Josefa Follow up Referrals: PCP Follow-up - 1 Week New Orders: BASIC METABOLIC PROF - 3-5 Days CBC WITH DIFF - 3-5 Days New Medications: Pantoprazole (Pantoprazole) 40 Mg Tab 40 MG PO DAILY Reflux #14 Ref 0 TAB Amlodipine (Norvasc) 5 Mg Tab 5 MG PO DAILY #30 TAB Clonazepam (Klonopin) 0.5 Mg Tab 0.5 MG PO Q8HR #21 Ref 0 TAB Diltiazem (Cardizem) 60 Mg Tab 60 MG PO Q6HR #90 TAB Levofloxacin (Levaquin) 750 Mg Tab 750 MG PO Q48H #5 TAB Prednisone (Prednisone) 20 Mg Tab 40 MG PO DAILY #7 TAB Continued Medications: Albuterol 18 GM Inh (Ventolin Hfa 18 GM Inh) 90 Mcg/Act Aer 2 PUFF INH Q4-6H PRN SHORTNESS OF BREATH #1 INHALER Apixaban (Eliquis) 2.5 Mg Tab 2.5 MG PO BID Blood Clot Prevention #60 Ref 0 TAB Calcium Carbonate (Calcium Carbonate) 500 Mg Chew 500 MG CHEW TID 500 mg calcium carbonate (200 mg elemental calcium) Calcium Supplement Ref [address] Gruber MD R1 February 23, 2017 11:48
[2017-02-23] MEDS: cloNIDine HCL 0.1 MG TAB PO PRN (12:49)
[2017-03-12] MEDS ORDERED: APIX2.5T PO (15:55)
[2017-03-16] MEDS ORDERED: APIX5TAB PO (16:56)
== END 2017-02-23 19:33 | disposition home or self-care (01) | DRG 191 ==
LOC: NEPE 18:17 → NEDA 23:05 → HOCA 02-21 00:44
PROVIDERS: ADMIT Family Medicine; ATTEND Family Medicine
DX: J44.1 Chronic obstructive pulmonary disease with (acute) exacerbation (principal); E87.1 Hypo-osmolality and hyponatremia; N17.9 Acute kidney failure, unspecified; Z99.81 Dependence on supplemental oxygen; I48.91 Unspecified atrial fibrillation; I10 Essential (primary) hypertension; E11.9 Type 2 diabetes mellitus without complications; D72.829 Elevated white blood cell count, unspecified; E87.6 Hypokalemia; G89.29 Other chronic pain; K21.9 Gastro-esophageal reflux disease without esophagitis; K59.00 Constipation, unspecified; F41.9 Anxiety disorder, unspecified; H91.90 Unspecified hearing loss, unspecified ear; Z51.5 Encounter for palliative care; Z66 Do not resuscitate; Z87.891 Personal history of nicotine dependence
CPT/HCPCS: 71010; 71275; 76775; 76937; 80048; 80053; 81001; 82550; 83735; 83880; 83930; 83935; 84300; 84443; 84484; 85007; 85025; 85027; 85060; 85610; 85730; 87040; 87070; 87205; 87804; 93005; 94150; 94640; 94664; 96361; 96374; 96375; J1956; J2270; J2405; J2930; J7030; J7040; J7512; Q9967

== ENCOUNTER 2017-05-12 00:17 | Inpatient (IN) | payer MEDICARE ==
[2017-05-12] VITALS (17 sets, daily range): BP systolic 175–225; BP diastolic 68–94; PULSE 66–112; RESP 16–21; TEMP 97.6–98.3; O2SAT 95–99
[~2017-05-12] VITALS: Ht 157.5 cm; Wt 68.9 kg
[~2017-05-12 00:17] MED LIST changes: -APIX2.5T PO; +APIX5TAB PO; -BACT800T5 PO; -CARV6.25 PO; -DILT60TA PO; +DILT60TA33 PO; -DRIS50002 PO; -FERR325T PO; -HYDR-3516 PO; +LEVA750T PO; +PANT40TA3 PO; +PRED20 PO; -PROT40TA PO; -SYMB80AE INH
[2017-05-12] MEDS ORDERED: APIX2.5T PO (00:26)
[2017-05-12] MEDS ORDERED: DILT60TA PO (00:26)
--- NOTE | 2017-05-12 00:42 | PD ---
HPI Chief Complaint: Abdominal Pain Time Seen by Provider: 00:39 Travel History International Travel<30 days: No Contact w/Intl Traveler<30days: No Traveled to known affect area: No History of Present Illness HPI 67-year-old female with history of COPD, paroxysmal A. fib/flutter Eliquis, here for evaluation of left upper quadrant abdominal pain that radiates up into her left chest and started around 5 hours ago. Patient is unable to describe the pain, however states it is 10 out of 10 and constant, worse with movement and palpation. She denies history of abdominal surgeries. No known history of CAD. She is on home O2 for her COPD. PFSH Past Medical History Hx Anticoagulant Therapy: Yes Arthritis: Yes ([place] hands) Asthma: No Autoimmune Disease: No Blood Disorders: Yes (x3 days) Anxiety: Yes Depression: No Heart Rhythm Problems: No Cancer: No Cardiovascular Problems: Yes (afib) High Cholesterol: No Chest Pain: No Congestive Heart Failure: No COPD: Yes Diabetes: Yes Patient Takes Glucophage: No Diminished Hearing: Yes ([place]) Endocrine: Yes Gastrointestinal Disorders: Yes GERD: Yes Genitourinary: Yes Hiatal Hernia: No Immune Disorder: No Kidney Stones: Yes (25 yrs ago) Musculoskeletal: Yes Neurologic: No Psychiatric: No Reproductive: No Respiratory: Yes (COPD) Immunizations Current: Yes Renal Failure: No Sleep Apnea: No Ulcer: No ?: Not Past Surgical History Hysterectomy: Yes Tonsillectomy: Yes Social History Alcohol Use: No Tobacco Use: No Substance Use: No Allergies-Medications (Allergen,Severity, Reaction): Coded Allergies: Metformin (Verified Allergy, Intermediate, 05/12/17) Reported Meds & Prescriptions Reported Meds & Active Scripts Active Ventolin Hfa 18 GM Inh (Albuterol Sulfate) 90 Mcg/Act Aer 2 Puff INH Q4-6H PRN Reported Diltiazem (Diltiazem HCl) 60 Mg Tab 60 Mg PO QID Eliquis (Apixaban) 2.5 Mg Tab 2.5 Mg PO BID Review of Systems Except as stated in HPI: all other systems reviewed are Neg Physical Exam Narrative GENERAL: Well-developed, well-nourished, slightly tachypneic. SKIN: Focused skin assessment warm/dry. No rash. HEAD: Atraumatic. Normocephalic. EYES: Pupils equal and round. No scleral icterus. No injection or drainage. ENT: Mucous membranes pink and moist. NECK: Trachea midline. No JVD. CARDIOVASCULAR: Regular rate and rhythm. No murmur appreciated. RESPIRATORY: No accessory muscle use. Clear to auscultation. Breath sounds equal bilaterally. GASTROINTESTINAL: Abdomen soft, nondistended. Moderate left upper quadrant tenderness without peritoneal signs. Rest of abdomen is mildly tender. Normal bowel sounds. MUSCULOSKELETAL: No obvious deformities. No clubbing. No cyanosis. No edema. NEUROLOGICAL: Awake and alert. No obvious cranial nerve deficits. Motor grossly within normal limits. Normal speech. PSYCHIATRIC: Appropriate mood and affect; insight and judgment normal. Data Data Last Documented VS Vital Signs Date Time Temp Pulse Resp B/P Pulse Ox O2 Delivery O2 Flow Rate FiO2 05/12/17 02:06 18 05/12/17 00:50 97 Nasal Cannula 2 05/12/17 00:19 97.6 112 194/88 Orders Complete Blood Count With Diff (05/12/17 00:39) Comprehensive Metabolic Panel (05/12/17 00:39) Lipase (05/12/17 00:39) Lactic Acid (05/12/17 00:39) Prothrombin Time / Inr (Pt) (05/12/17 00:39) Act Partial Throm Time (Ptt) (05/12/17 00:39) Urinalysis - C+S If Indicated (05/12/17 00:39) Ct Abd/Pel W Iv Contrast(Rout) (05/12/17 00:39) Iv Access Insert/Monitor (05/12/17 00:39) Ecg Monitoring (05/12/17 00:39) Oximetry (05/12/17 00:39) Morphine Inj (Morphine Inj) (05/12/17 00:45) Sodium Chloride 0.9% Flush (Ns Flush) (05/12/17 00:45) Electrocardiogram (05/12/17 00:39) Ckmb (Isoenzyme) Profile (05/12/17 00:39) Troponin I (05/12/17 00:39) Chest, Single Ap (05/12/17 ) Iohexol 350 Inj (Omnipaque 350 Inj) (05/12/17 01:54) Sodium Chlor 0.9% 1000 Ml Inj (Ns 1000 M (05/12/17 02:16) Labs Laboratory Tests Test 05/12/17 05/12/17 00:49 02:00 White Blood Count 19.2 TH/MM3 Red Blood Count 4.45 MIL/MM3 Hemoglobin 13.6 GM/DL Hematocrit 39.7 % Mean Corpuscular Volume 89.2 FL Mean Corpuscular Hemoglobin 30.5 PG Mean Corpuscular Hemoglobin 34.2 % Concent Red Cell Distribution Width 13.3 % Platelet Count 365 TH/MM3 Mean Platelet Volume 7.3 FL Neutrophils (%) (Auto) 67.9 % Lymphocytes (%) (Auto) 21.1 % Monocytes (%) (Auto) 8.5 % Eosinophils (%) (Auto) 2.1 % Basophils (%) (Auto) 0.4 % Neutrophils # (Auto) 13.0 TH/MM3 Lymphocytes # (Auto) 4.1 TH/MM3 Monocytes # (Auto) 1.6 TH/MM3 Eosinophils # (Auto) 0.4 TH/MM3 Basophils # (Auto) 0.1 TH/MM3 CBC Comment DIFF FINAL Differential Comment Prothrombin Time 10.0 SEC Prothromb Time International 0.9 RATIO Ratio Activated Partial 27.2 SEC Thromboplast Time Sodium Level 135 MEQ/L Potassium Level 3.3 MEQ/L Chloride Level 87 MEQ/L Carbon Dioxide Level 36.8 MEQ/L Anion Gap 11 MEQ/L Blood Urea Nitrogen 22 MG/DL Creatinine 1.24 MG/DL Estimat Glomerular Filtration 43 ML/MIN Rate Random Glucose 163 MG/DL Lactic Acid Level 1.2 mmol/L Calcium Level 8.9 MG/DL Total Bilirubin 0.4 MG/DL Aspartate Amino Transf 14 U/L (AST/SGOT) Alanine Aminotransferase 18 U/L (ALT/SGPT) Alkaline Phosphatase 106 U/L Total Creatine Kinase 44 U/L Troponin I 0.02 NG/ML Total Protein 7.2 GM/DL Albumin 3.2 GM/DL Lipase 85 U/L Urine Color YELLOW Urine Turbidity CLEAR Urine pH 7.0 Urine Specific [place] 1.019 Urine Protein 30 mg/dL Urine Glucose (UA) 300 mg/dL Urine Ketones NEG mg/dL Urine Occult Blood NEG Urine Nitrite NEG Urine Bilirubin NEG Urine Urobilinogen LESS THAN 2.0 MG/DL Urine Leukocyte Esterase NEG Urine RBC LESS THAN 1 /hpf Urine WBC 2 /hpf Urine Squamous Epithelial 2 /hpf Cells Urine Transitional Epithelial <1 /hpf Cells Urine Hyaline Casts 2 /lpf Microscopic Urinalysis Comment CULT NOT INDICATED MDM Medical Decision Making Medical Screen Exam Complete: Yes Emergency Medical Condition: Yes Medical Record Reviewed: Yes Interpretation(s) EKG: A. fib, rate 79, Differential Diagnosis Gastritis, pancreatitis, hepatobiliary disease, peptic ulcer disease, acute intra-abdominal infectious process, ACS, pneumothorax, PE Narrative Course Initial vital signs show heart rate 112, blood pressure 194/88, pulse ox 95% on room air, oral temp of 97.6F. CBC shows WBC 19.2, hemoglobin 13.6, hematocrit 39.7, platelets 365. CMP is markable for potassium 3.3, chloride 87, bicarbonate 36.8, BUN 22, creatinine 1.4, GFR 43 Lipase is 85. Cardiac enzymes are negative. Lactic acid is 1.2. UA: UA is not suggestive of UTI. Chest x-ray: CONCLUSION: 1. Emphysema. 2. Left lower lobe mass again noted and concerning for primary bronchogenic carcinoma until proven otherwise. CT abdomen pelvis: CONCLUSION: 1. Left renal cyst. 2. Hepatomegaly and steatosis. 3. Mild aneurysmal dilatation of the infrarenal abdominal aorta. 4. Severe diverticulosis without diverticulitis. 5. Dilated loops of small bowel are noted with mesenteric fluid and decompressed distal loops. This is concerning for at least partial small bowel obstruction. 6. Atrophic right kidney. Patient made aware of all findings. She is feeling somewhat better after receiving antiemetics and pain medication. She is aware of the left lower lobe lung mass and reports that she was made aware of it a while ago. She has decided not to seek any treatment for this and notes that it could potentially be cancerous. Patient was started on normal saline at 125 cc per hour peripherally. She'll be admitted for further treatment and evaluation of partial SBO. Case discussed with hospitalist Dr. Jaimes who will admit the patient to her service. Diagnosis Primary Impression: Partial small bowel obstruction Admitting Information Admitting Physician Requests: Observation Mt Mata MD May 12, 2017 00:42
[2017-05-12] MEDS ORDERED: SODIUM CHLORIDE 0.9% FLUSH 10 ML FLUSH IV FLUSH PRN ×2 (00:45→02:45)
[2017-05-12] MEDS ORDERED: MORPHINE SULFATE 4 MG/ML INJ IV PUSH ONE (00:45)
[2017-05-12 01:06] LABS: BASOPHIL # 0.1 TH/MM3 (0-0.2); BASOPHIL % 0.4 % (0.0-2.0); EOSINOPHIL # 0.4 TH/MM3 (0-0.4); EOSINOPHIL % 2.1 % (0.0-4.0); HEMATOCRIT 39.7 % (35.0-46.0); HEMO FLAGS DIFF FINAL; LYMPH % 21.1 % (9.0-44.0); LYMPHOCYTE # 4.1 TH/MM3 (1.0-4.8); MEAN CELL VOLUME 89.2 FL (80.0-100.0); MEAN CORPUSCULAR HEMOGLOBIN 30.5 PG (27.0-34.0); MEAN CORPUSCULAR HGB CONC 34.2 % (32.0-36.0); MONO % 8.5 % (0.0-8.0); NEUT % 67.9 % (16.0-70.0); PLATELET COUNT 365 TH/MM3 (150-450); RED BLOOD COUNT 4.45 MIL/MM3 (4.00-5.30); RED CELL DISTRIBUTION WIDTH 13.3 % (11.6-17.2); WHITE BLOOD COUNT 19.2 TH/MM3 (4.0-11.0)
[2017-05-12 01:25] LABS: ALKALINE PHOSPHATASE 106 U/L (45-117); ALT (GPT) 18 U/L (10-53); ANION GAP 11 MEQ/L (5-15); AST (GOT) 14 U/L (15-37); BICARBONATE 36.8 MEQ/L (21.0-32.0); BLOOD UREA NITROGEN 22 MG/DL (7-18); CHLORIDE 87 MEQ/L (98-107); CREATINE KINASE 44 U/L (26-192); GLOMERULAR FILTRATION RATE 43 ML/MIN (>89); POTASSIUM 3.3 MEQ/L (3.5-5.1); SODIUM (NA) 135 MEQ/L (136-145); TOTAL BILIRUBIN ADULT 0.4 MG/DL (0.2-1.0)
[2017-05-12 01:36] LABS: APTT (PATIENT) 27.2 SEC (24.3-30.1); INTERNATIONAL NORMALIZED RATIO 0.9 RATIO
[2017-05-12] MEDS ORDERED: IOHEXOL 350 MG/ML 10 ML VIAL (for RAD DIAG) IV ONE (01:54)
--- NOTE | 2017-05-12 02:00 | RADRPT ---
EXAM DATE/TIME: 05/12/2017 01:40 [facility] COMPARISON: US ABDOMEN - COMPLETE, February 25, 2016, 9:13. INDICATIONS : Left upper quadrant pain. IV CONTRAST: 100 cc Omnipaque 350 (iohexol) IV ORAL CONTRAST: No oral contrast ingested. RADIATION DOSE: 9.96 CTDIvol (mGy) MEDICAL HISTORY : Renal calculi. Gastroesophageal reflux disease. Chronic obstructive pulmonary disease.Diabetes. SURGICAL HISTORY : Hysterectomy. ENCOUNTER: Initial ACUITY: 1 day PAIN SCALE: 8/10 LOCATION: Left upper quadrant TECHNIQUE: Volumetric scanning of the abdomen and pelvis was performed. Using automated exposure control and ad justment of the mA and/or kV according to patient size, radiation dose was kept as low as reasonably achievable to obtain optimal diagnostic quality images. DICOM format image data is available electro nically for review and comparison. FINDINGS: The lung bases are clear. No pleural or pericardial effusions. Hepatomegaly and hepatic steatosis. Th ere is trace perihepatic free fluid along the right lobe laterally. Spleen, pancreas, adrenal glands are unremarkable. The right kidney is atrophic. There is a subcentimeter simple cyst left midpole kid gertrude. Extensive atherosclerotic calcifications of the aorta and its branches identified. There is iden tified at the [place] level, mild aneurysmal dilatation of the abdominal aorta measuring 3 x 2 8 cm in AP and transverse dimension. Urinary bladder unremarkable. Free fluid in the pelvis. Uterus unremarkabl e. There is severe diverticulosis of the entire colon. There are multiple dilated loops of small elsa l identified intermesenteric fluid present. The distal loops are decompressed. A well-defined transit ion point is not seen however the findings are concerning for small bowel obstruction. Osseous struct ures are intact. CONCLUSION: 1. Left renal cyst. 2. Hepatomegaly and steatosis. 3. Mild aneurysmal dilatation of the infrarenal abdominal aorta. 4. Severe diverticulosis without diverticulitis. 5. Dilated loops of small bowel are noted with mesenteric fluid and decompressed distal loops. This i s concerning for at least partial small bowel obstruction. 6. Atrophic right kidney. Abdirizak Burns MD on May 12, 2017 at 1:55 Board Certified Radiologist. This report was verified electronically.
[2017-05-12] MEDS ORDERED: SODIUM CHLOR 0.9% 1000 ML INJ 1,000 ML IV SCH (02:16)
--- NOTE | 2017-05-12 02:17 | RADRPT ---
EXAM DATE/TIME: 05/12/2017 01:49 [facility] COMPARISON: CHEST SINGLE AP, February 20, 2017, 18:59. INDICATIONS : Shortness of breath. MEDICAL HISTORY : Chronic obstructive pulmonary disease. SURGICAL HISTORY : None. ENCOUNTER: Initial ACUITY: 1 day PAIN SCORE: 0/10 LOCATION: Bilateral chest FINDINGS: Hyperinflation and attenuated lung markings again seen. There is no consolidation. A left lower lobe superior segment mass is again seen measuring 1.6 cm. CONCLUSION: 1. Emphysema. 2. Left lower lobe mass again noted and concerning for primary bronchogenic carcinoma until proven ot herwise. Abdirizak Burns MD on May 12, 2017 at 2:14 Board Certified Radiologist. This report was verified electronically.
[2017-05-12 02:24] LABS: BLOOD, URINE NEG (NEG); COMMENT (UR) CULT NOT INDICATED; CULTURE IF INDICATED CULT NOT INDICATED; GLUCOSE,URINE 300 mg/dL (NEG); HYALINE CAST, URINE 2 /lpf (RARE); KETONE, URINE NEG (NEG); NITRITE,URINE NEG (NEG); SQUAMOUS EPITHELIAL CELL URINE 2 /hpf (0-5); TRANSITIONAL EPI CELLS, URINE <1 /hpf; URINE COLOR YELLOW (YELLW/STRAW)
[2017-05-12] MEDS ORDERED: NALOXONE HCL 0.4 MG/ML AMP IV PRN (02:45)
[2017-05-12] MEDS: SODIUM CHLOR 0.9% 1000 ML INJ 1,000 ML IV SCH ×2 (02:54→12:37)
[2017-05-12] MEDS: SODIUM CHLORIDE 0.9% FLUSH 10 ML FLUSH IV FLUSH SCH ×2 (08:05→21:00)
[2017-05-12] MEDS: MORPHINE SULFATE 4 MG/ML INJ IV PUSH PRN ×2 (08:08→23:44)
[2017-05-12] MEDS: ONDANSETRON HCL 4 MG/2 ML VIAL IVP PRN ×2 (08:09→17:52)
--- NOTE | 2017-05-12 08:19 | EKG ---
Date Performed: 05/12/2017 Time Performed: 00:58:09 PTAGE: 67 years EKG: ATRIAL FIBRILLATION NONSPECIFIC ST & T-WAVE ABNORMALITY ABNORMAL RHYTHM ECG PREVIOUS TRACING : 02/21/2017 00.14 DOCTOR: Fox Mathew Interpretating Date/Time 05/12/2017 08:18:05
--- NOTE | 2017-05-12 11:21 | HHI.HP ---
HPI Service [facility] Primary Care Physician No Primary Care Physician Admission Diagnosis partial SBO Diagnoses: Chief Complaint: Left upper quadrant abdominal pain Travel History International Travel<30 Days: No Contact w/Intl Traveler <30 Da: No Traveled to Known Affected Are: No History of Present Illness 67-year-old female with a medical history significant for COPD, atrial fibrillation on Eliquis, known lung mass concerning for cancer but the patient refused workup. She presented to the emergency room with complaint of left upper quadrant abdominal pain. Reports the pain started yesterday evening and has become severe. It is worse with movement. Last bowel movement was yesterday morning. She denies vomiting but reports nausea. No flatus today. She received morphine which is helping with the pain. Abdominal CT in the emergency room revealed at least partial small bowel obstruction. Review of Systems Constitutional: DENIES: Fever, Chills Respiratory: COMPLAINS OF: Shortness of breath (chronic) Cardiovascular: DENIES: Chest pain, Palpitations Gastrointestinal: COMPLAINS OF: Abdominal pain, Nausea, DENIES: Vomiting Except as stated in HPI: all other systems reviewed are Neg Past Family Social History Past Medical History Atrial fibrillation, on Eliquis. COPD O2 Dependent HTN Past Surgical History Tonsillectomy Reported Medications Reported Meds & Active Scripts Active Ventolin Hfa 18 GM Inh (Albuterol Sulfate) 90 Mcg/Act Aer 2 Puff INH Q4-6H PRN Reported Diltiazem (Diltiazem HCl) 60 Mg Tab 60 Mg PO QID Eliquis (Apixaban) 2.5 Mg Tab 2.5 Mg PO BID Allergies: Coded Allergies: Metformin (Verified Allergy, Intermediate, 05/12/17) Family History Mother with a history of heart disease Social History Lifelong smoker. States she quit a few years ago. Denies alcohol or illicit drug use. Physical Exam Vital Signs Vital Signs Date Time Temp Pulse Resp B/P Pulse Ox O2 Delivery O2 Flow Rate FiO2 05/12/17 10:34 98.3 81 18 175/79 97 Room Air 05/12/17 08:13 17 05/12/17 07:30 17 05/12/17 07:30 97.8 83 17 177/81 99 Nasal Cannula 2 05/12/17 07:00 17 98 Nasal Cannula 2 05/12/17 03:35 90 18 178/68 98 Room Air 05/12/17 02:59 88 18 97 Nasal Cannula 2 05/12/17 02:06 18 05/12/17 00:50 97 Nasal Cannula 2 05/12/17 00:19 97.6 112 18 194/88 95 Physical Exam GENERAL: Chronically ill-appearing female SKIN: No rashes, ecchymoses or lesions. Cool and dry. HEAD: Atraumatic. Normocephalic. No temporal or scalp tenderness. EYES: Pupils equal round and reactive. Extraocular motions intact. No scleral icterus. No injection or drainage. ENT: Nose without bleeding, purulent drainage or septal hematoma. Throat without erythema, tonsillar hypertrophy or exudate. Uvula midline. Airway patent. NECK: Trachea midline. No JVD or lymphadenopathy. Supple, nontender, no meningeal signs. CARDIOVASCULAR: Regular rate and rhythm without murmurs, gallops, or rubs. RESPIRATORY: Poor air movement bilaterally. Otherwise clear to auscultation. No wheezes, rales, or rhonchi. GASTROINTESTINAL: Abdomen soft, markedly tender to palpation over the left upper quadrant. No guarding. MUSCULOSKELETAL: Extremities without clubbing, cyanosis, or edema. No joint tenderness, effusion, or edema noted. No calf tenderness. Negative Homans sign bilaterally. NEUROLOGICAL: Awake and alert. Cranial nerves II through XII intact. Motor and sensory grossly within normal limits. Five out of 5 muscle strength in all muscle groups. Normal speech. Laboratory Laboratory Tests Test 05/12/17 05/12/17 00:49 02:00 White Blood Count 19.2 Red Blood Count 4.45 Hemoglobin 13.6 Hematocrit 39.7 Mean Corpuscular Volume 89.2 Mean Corpuscular Hemoglobin 30.5 Mean Corpuscular Hemoglobin 34.2 Concent Red Cell Distribution Width 13.3 Platelet Count 365 Mean Platelet Volume 7.3 Neutrophils (%) (Auto) 67.9 Lymphocytes (%) (Auto) 21.1 Monocytes (%) (Auto) 8.5 Eosinophils (%) (Auto) 2.1 Basophils (%) (Auto) 0.4 Neutrophils # (Auto) 13.0 Lymphocytes # (Auto) 4.1 Monocytes # (Auto) 1.6 Eosinophils # (Auto) 0.4 Basophils # (Auto) 0.1 CBC Comment DIFF FINAL Differential Comment Prothrombin Time 10.0 Prothromb Time International 0.9 Ratio Activated Partial 27.2 Thromboplast Time Sodium Level 135 Potassium Level 3.3 Chloride Level 87 Carbon Dioxide Level 36.8 Anion Gap 11 Blood Urea Nitrogen 22 Creatinine 1.24 Estimat Glomerular Filtration 43 Rate Random Glucose 163 Lactic Acid Level 1.2 Calcium Level 8.9 Total Bilirubin 0.4 Aspartate Amino Transf 14 (AST/SGOT) Alanine Aminotransferase 18 (ALT/SGPT) Alkaline Phosphatase 106 Total Creatine Kinase 44 Troponin I 0.02 Total Protein 7.2 Albumin 3.2 Lipase 85 Urine Color YELLOW Urine Turbidity CLEAR Urine pH 7.0 Urine Specific [place] 1.019 Urine Protein 30 Urine Glucose (UA) 300 Urine Ketones NEG Urine Occult Blood NEG Urine Nitrite NEG Urine Bilirubin NEG Urine Urobilinogen LESS THAN 2.0 Urine Leukocyte Esterase NEG Urine RBC LESS THAN 1 Urine WBC 2 Urine Squamous Epithelial 2 Cells Urine Transitional Epithelial <1 Cells Urine Hyaline Casts 2 Microscopic Urinalysis Comment CULT NOT INDICATED Result Diagram: 05/12/17 0049 05/12/17 0049 Imaging Last Impressions Abdomen/Pelvis CT 05/12/17 0039 Signed Impressions: Service Date/Time: Friday, May 12, 2017 01:40 - CONCLUSION: 1. Left renal cyst. 2. Hepatomegaly and steatosis. 3. Mild aneurysmal dilatation of the infrarenal abdominal aorta. 4. Severe diverticulosis without diverticulitis. 5. Dilated loops of small bowel are noted with mesenteric fluid and decompressed distal loops. This is concerning for at least partial small bowel obstruction. 6. Atrophic right kidney. Abdirizak Burns MD Chest X-Ray 05/12/17 0000 Signed Impressions: Service Date/Time: Friday, May 12, 2017 01:49 - CONCLUSION: 1. Emphysema. 2. Left lower lobe mass again noted and concerning for primary bronchogenic carcinoma until proven otherwise. Abdirizak Burns MD Assessment and Plan Problem List: (1) Partial small bowel obstruction ICD Code: K56.69 Status: Acute Plan: No history of abdominal surgery. Conservative management for now. Bowel rest, Nothing by mouth. IV fluids. Pain control. Stool softener and laxatives. Encourage ambulation. (2) Lung mass ICD Code: R91.8 Status: Acute Plan: Patient is well aware of this. She continues to decline any further workup. She is fully aware that this lesion may be cancerous. (3) HTN (hypertension) ICD Code: I10 Status: Chronic Plan: Continue diltiazem Clonidine as needed. (4) COPD (chronic obstructive pulmonary disease) ICD Code: J44.9 Status: Acute Plan: Chronic and stable. Continue breathing treatments as needed. Supplement oxygen. Physician Certification 2 Midnight Certification Type: Admission for Inpatient Services Order for Inpatient Services The services are ordered in accordance with Medicare regulations or non- Medicare payer requirements, as applicable. In the case of services not specified as inpatient-only, they are appropriately provided as inpatient services in accordance with the 2-midnight benchmark. Estimated LOS (days): 3 days is the estimated time the patient will need to remain in the hospital, assuming treatment plan goals are met and no additional complications. Post-Hospital Plan: Home Marcelo Cochran MD May 12, 2017 11:20
[2017-05-12] MEDS: DILTIAZEM HCL 60 MG TAB PO SCH ×3 (12:53→21:12)
[2017-05-12] MEDS: cloNIDine HCL 0.1 MG TAB PO PRN ×2 (12:54→17:43)
[2017-05-12] MEDS ORDERED: RESP: ALBUTEROL 2.5 MG/IPRATROPIUM 0.5 MG NEB (PRN) NEB (13:00)
[2017-05-12] MEDS: DOCUSATE SODIUM 100 MG CAP PO SCH ×2 (13:47→21:13)
[2017-05-12] MEDS: D5-1/2 NS + KCL 20 MEQ INJ 1,000 ML IV SCH (13:47)
[2017-05-12] MEDS ORDERED: hydrALAZINE HCL 20 MG/ML VIAL IV PRN (15:15)
[2017-05-12] MEDS ORDERED: cloNIDine HCL 0.1 MG TAB PO ONE (17:45)
[2017-05-12] MEDS ORDERED: ENALAPRILAT 1.25 MG/ML VIAL IV PUSH ONE (20:00)
[2017-05-12] MEDS ORDERED: ENALAPRILAT 1.25 MG/ML VIAL IV PRN (21:15)
[2017-05-12] MEDS: LACTULOSE SYRUP 20 GM/30 ML CUP PO PRN (23:48)
[2017-05-13] VITALS (25 sets, daily range): BP systolic 117–176; BP diastolic 56–78; PULSE 50–93; RESP 16–20; TEMP 97.4–98.4; O2SAT 84–100
[2017-05-13] MEDS: D5-1/2 NS + KCL 20 MEQ INJ 1,000 ML IV SCH ×2 (02:59→16:47)
[2017-05-13] MEDS: MORPHINE SULFATE 4 MG/ML INJ IV PUSH PRN ×5 (02:59→20:37)
[2017-05-13] MEDS: ONDANSETRON HCL 4 MG/2 ML VIAL IVP PRN (05:57)
[2017-05-13 06:56] LABS: AUTOMATED NEUTROPHIL # 12.9 TH/MM3 (1.8-7.7); BASOPHIL # 0.1 TH/MM3 (0-0.2); BASOPHIL % 0.3 % (0.0-2.0); EOSINOPHIL # 0.2 TH/MM3 (0-0.4); HEMATOCRIT 35.5 % (35.0-46.0); HEMO FLAGS DIFF FINAL; LYMPH % 10.6 % (9.0-44.0); LYMPHOCYTE # 1.7 TH/MM3 (1.0-4.8); MEAN CELL VOLUME 90.2 FL (80.0-100.0); MEAN CORPUSCULAR HEMOGLOBIN 30.6 PG (27.0-34.0); MEAN CORPUSCULAR HGB CONC 33.9 % (32.0-36.0); MONO % 8.2 % (0.0-8.0); NEUT % 79.9 % (16.0-70.0); PLATELET COUNT 304 TH/MM3 (150-450); RED BLOOD COUNT 3.93 MIL/MM3 (4.00-5.30); RED CELL DISTRIBUTION WIDTH 13.3 % (11.6-17.2); WHITE BLOOD COUNT 16.2 TH/MM3 (4.0-11.0)
[2017-05-13 07:30] LABS: BICARBONATE 37.9 MEQ/L (21.0-32.0)
[2017-05-13] MEDS: SODIUM CHLORIDE 0.9% FLUSH 10 ML FLUSH IV FLUSH SCH ×2 (09:07→20:37)
[2017-05-13] MEDS: DILTIAZEM HCL 60 MG TAB PO SCH ×4 (09:08→20:36)
[2017-05-13] MEDS: DOCUSATE SODIUM 100 MG CAP PO SCH ×2 (09:08→20:40)
--- NOTE | 2017-05-13 09:14 | RADRPT ---
EXAM DATE/TIME: 05/13/2017 07:51 [facility] COMPARISON: US KIDNEY/RENAL/BLADDER, February 22, 2017, 19:39. CT ABDOMEN & PELVIS W CONTRAST, May 12, 2017, 1:40. INDICATIONS : Obstruction. Previous lower abdominal pain. MEDICAL HISTORY : Renal calculi. Gastroesophageal reflux disease. Chronic obstructive pulmonary disease. Diabetes. SURGICAL HISTORY : Hysterectomy. ENCOUNTER: Subsequent ACUITY: 2 days PAIN SCORE: 0/10 LOCATION: Bilateral lower quadrant abdomen FINDINGS: Supine view of the abdomen was performed. The abdominal bowel gas pattern is normal. No abnormal ma sses, calcifications, or organomegaly is seen. The osseous structures are unremarkable. CONCLUSION: Normal examination. Magdy Coe MD on May 13, 2017 at 9:07 Board Certified Radiologist. This report was verified electronically.
[2017-05-13] MEDS ORDERED: MIDAZOLAM HCL 2 MG/2 ML VIAL ONE ×2 (11:53)
[2017-05-13] MEDS ORDERED: fentaNYL CITRATE 250 MCG/5 ML AMP ONE (11:54)
[2017-05-13] MEDS ORDERED: EPINEPHrine HCL (1:10,000) 1 MG/10 ML SYRINGE ONE (11:56)
[2017-05-13] MEDS ORDERED: ATROPINE SULFATE 1 MG/10 ML SYRINGE ONE (11:56)
[2017-05-13] MEDS ORDERED: ceFAZolin 2 GM PREMIX 50 ML ONE (13:11)
[2017-05-13] MEDS ORDERED: HEPARIN SODIUM - IV 10,000 UNITS/10 ML VIAL ONE (13:12)
[2017-05-13] MEDS ORDERED: SODIUM CHLOR 0.9% 1000 ML INJ 1,000 ML IV SCH (13:48)
--- NOTE | 2017-05-13 13:58 | PD.RAD ---
Post Procedure Progress Note Pre Procedure Diagnosis: (1) Hypertensive urgency (2) Renal artery stenosis Post Procedure Diagnosis: (1) Hypertensive urgency (2) Renal artery stenosis Procedure Date: May 13, 2017 Supervising Radiologist: Magdy Coe Proceduralist/Assist: Andrew Ryder, RT(R), Courtney Hutton RT(R) Anesthesia: Local, Conscious Sedation Plan of Activity Patient to Unit: ROPU Patient Condition: Good See PACS Report for procedural detail/treatment Vascular-Arterial Procedure Procedure 1 Procedure Site: Right Renal, Abdominal Procedure(s): Angiogram, Stent Placement Access Access Site(s): Right Femoral Artery Closure Site(s): Right vascular closure device Findings: critical R LONG Treament Area: stent repair without complication Magdy Coe MD May 13, 2017 13:58
[2017-05-13] MEDS ORDERED: ACETAMINOPHEN 325 MG TAB PO PRN (14:00)
[2017-05-13] MEDS ORDERED: IODIXANOL 320 MG/ML 50 ML VIAL (for RAD SPEC) I-ARTERIAL ONE (14:05)
[2017-05-13] MEDS ORDERED: CLOPIDOGREL 300 MG TAB PO ONE (15:00)
[2017-05-13] MEDS: oxyCODONE/ACETAMINOPHEN 5 MG/325 MG TAB PO PRN (15:12)
--- NOTE | 2017-05-13 15:38 | HHI.PR ---
Subjective Remarks Patient status post renal artery stent placement with IR. She reports feeling much better. Abdominal pain much improved. She wants to eat. Objective Vitals Vital Signs Date Time Temp Pulse Resp B/P Pulse Ox O2 Delivery O2 Flow Rate FiO2 05/13/17 14:45 74 20 153/67 92 05/13/17 14:15 75 20 165/69 92 05/13/17 14:00 97.8 84 20 176/78 84 05/13/17 12:00 72 05/13/17 11:39 97.6 75 16 142/67 98 05/13/17 11:00 63 05/13/17 10:00 72 05/13/17 09:43 100 Nasal Cannula 3.00 05/13/17 09:18 17 05/13/17 09:00 78 05/13/17 08:00 70 05/13/17 08:00 80 17 131/67 100 05/13/17 07:00 76 05/13/17 06:00 75 05/13/17 05:00 86 05/13/17 04:00 73 05/13/17 04:00 97.6 50 16 133/56 98 05/13/17 03:00 78 05/13/17 02:00 64 05/13/17 01:00 60 05/13/17 00:00 97.4 71 16 117/57 100 05/13/17 00:00 66 05/12/17 23:00 66 05/12/17 22:00 70 05/12/17 21:00 92 05/12/17 20:00 83 05/12/17 20:00 97.8 82 16 175/94 99 05/12/17 19:43 99 Nasal Cannula 3.00 05/12/17 18:55 80 21 175/82 99 05/12/17 18:21 206/72 05/12/17 16:15 97.8 98 21 225/92 97 Nasal Cannula 3 I/O 05/12/17 05/12/17 05/12/17 05/13/17 05/13/17 05/13/17 07:00 15:00 23:00 07:00 15:00 23:00 Intake Total 240 ml Output Total 800 ml 800 ml Balance -800 ml -560 ml Intake Oral 240 ml Output Urine Total 800 ml 800 ml # Voids 2 # Bowel Movements 4 Result Diagram: 05/13/17 0550 05/13/17 0550 Imaging Last Impressions Abdomen X-Ray 05/13/17 0600 Signed Impressions: Service Date/Time: May 07:51 - CONCLUSION: Normal examination. Magdy Coe MD Renal Arteriogram 05/13/17 0000 Signed Impressions: Service Date/Time: May 12:43 - CONCLUSION: Right renal artery angioplasty and stent placement for critical right renal artery stenosis as above. Magdy Coe MD Abdomen/Pelvis CT 05/12/17 0039 Signed Impressions: Service Date/Time: Friday, May 12, 2017 01:40 - CONCLUSION: 1. Left renal cyst. 2. Hepatomegaly and steatosis. 3. Mild aneurysmal dilatation of the infrarenal abdominal aorta. 4. Severe diverticulosis without diverticulitis. 5. Dilated loops of small bowel are noted with mesenteric fluid and decompressed distal loops. This is concerning for at least partial small bowel obstruction. 6. Atrophic right kidney. Abdirizak Burns MD Chest X-Ray 05/12/17 0000 Signed Impressions: Service Date/Time: Friday, May 12, 2017 01:49 - CONCLUSION: 1. Emphysema. 2. Left lower lobe mass again noted and concerning for primary bronchogenic carcinoma until proven otherwise. Abdirizak Burns MD Objective Remarks GENERAL: This is a well-nourished, well-developed patient, in no apparent distress. CARDIOVASCULAR: Regular rate and rhythm without murmurs, gallops, or rubs. RESPIRATORY: Clear to auscultation. Breath sounds equal bilaterally. No wheezes , rales, or rhonchi. GASTROINTESTINAL: Abdomen soft, nondistended. Normal active bowel sounds. Mild tenderness to palpation left upper quadrant MUSCULOSKELETAL: Extremities without clubbing, cyanosis, or edema. NEURO: Alert & Oriented x4 to person, place, time, situation. Moves all ext x4 A/P Problem List: (1) Partial small bowel obstruction ICD Code: K56.69 Status: Acute Plan: No history of abdominal surgery. Resolved. Stool softener and laxatives as needed. Encourage ambulation. Advance diet as tolerated. (2) Renal artery stenosis ICD Code: I70.1 Status: Acute Plan: With malignant HTN. I discuss the case with IR today. Patient is status post stent (3) Lung mass ICD Code: R91.8 Status: Acute Plan: Patient is well aware of this. She continues to decline any further workup. She is fully aware that this lesion may be cancerous. (4) HTN (hypertension) ICD Code: I10 Status: Chronic Plan: Continue diltiazem Clonidine as needed. (5) COPD (chronic obstructive pulmonary disease) ICD Code: J44.9 Status: Acute Plan: Chronic and stable. Continue breathing treatments as needed. Supplement oxygen. (6) Hypokalemia ICD Code: E87.6 Status: Resolved Plan: Replace and monitor. Marcelo Cochran MD May 13, 2017 15:38
[2017-05-13] MEDS ORDERED: POTASSIUM CHLORIDE 10 MEQ CONTROLLED RELEASE TAB PO ONE (15:45)
--- NOTE | 2017-05-13 16:57 | RADRPT ---
EXAM DATE/TIME: 05/13/2017 12:43 [place] COMPARISON: No previous studies available for comparison. INDICATIONS : Patient with right renal artery stenosis with poorly controlled hypertension and renal insufficiency in need of renal angiogram with stent placement. MEDICAL HISTORY : HTN, A-Fib, COPD, Diabetes, GERD, Kidney stones, O2 dependent SURGICAL HISTORY : Hysterectomy, Tonsillectomy ENCOUNTER: Initial ACUITY: 1 day PAIN SCORE: 4/10 LOCATION: mid backand abdomen FLUORO TIME: 14.5 minutes IMAGE SERIES: 9 ACCESS SITE: Right Femoral artery SEDATION TIME: 45 minutes CONTRAST: 1.) 70 cc Visipaque (iodixanol) MEDICATION(S): 1.) 2 mg midazolam (Versed) IV 2.) 100 mcg fentanyl (Sublimaze) IV 3.) 2 g cefazolin (Ancef) IV 4.) 5000 units Heparin IV Intra-procedural antibiotics were given as prescribed above. DEVICE(S): 1.) Right renal artery Express SD [id number] 150CM stent (balloon expanding) 2.) Right common femoral artery 6F Angio-Seal PROCEDURE : 1. Ultrasound-guided puncture of the right common femoral artery access site. 2. Angiography of the right common femoral artery access site prior to closure device. 3. Conscious sedation with continuous EKG and Oximetry monitoring. 4. Percutaneous closure of the right common femoral artery access site. 5. selective catheterization, right renal artery 6. selective right renal arteriography with aortography 7. right renal artery primary vascular stent placement and angioplasty The patient was placed supine on the angiography table. The right groin was prepped in sterile fashio n. Full sterile technique was used, including cap, mask, sterile gloves and gown and a large sterile sheet. Hand hygiene and 2% chlorhexidine and/or betadine/alcohol prep was utilized per protocol for c utaneous antisepsis. The skin and subcutaneous tissues were infiltrated with lidocaine solution. Blun t dissection was utilized to free up the tissues superficial to the common femoral artery. Under dire ct ultrasound guidance, micropuncture access was accomplished into the common femoral artery allowing placement of a 4 Cameroonian vascular sheath. The ultrasound images depicting access guidance were saved and stored to PACS for permanent record. A 4 Cameroonian Omni flush catheter was inserted and positioned in the upper abdominal aorta. Digital subt raction abdominal aortography and pelvic arteriography was performed. A 4 Cameroonian hook catheter was introduced and used to engage the right renal artery. Selective right re nal arteriography was performed. A Roadrunner guidewire was manipulated across a critical stenosis of the proximal right renal artery. The catheter followed with little difficulty into the distal main r enal artery and wire exchange was performed with placement of a Lee wire. Over the Lee wire, a 6 Cameroonian Ansell I sheath was inserted and eased into the right renal artery. The guidewire was removed. A V. 18 wire was inserted. A 5 mm x 15 mm express SD renal stent was inserted and positioned with amado btraction imaging. The stent was deployed and the inflation balloon was taken to rated burst pressure estimated to yield a final stent diameter of 5.4 mm. Completion arteriography was performed revealin g excellent result with wide patency of the renal artery and no complication. Sheath arteriography was performed and the sheath was removed. The arteriotomy was closed with the An ashley-Seal device. The patient tolerated the procedure well and was taken to the recovery area in sta e condition. Conscious sedation was performed with the prescribed dosages and duration as above in e presence of an independent trained radiology nurse to assist in the monitoring of the patient. EKG and oximetry remained stable throughout the procedure. FINDINGS: Critical focal ostial right renal artery stenosis treated successfully with stent placement and angio plasty. No significant stenosis involving the left renal artery. Mild aneurysmal dilatation of the di stal abdominal aorta. No evidence of aortic or significant iliac stenosis. CONCLUSION: Right renal artery angioplasty and stent placement for critical right renal artery stenosis as above. Magdy Coe MD on May 13, 2017 at 16:40 Board Certified Radiologist. This report was verified electronically.
[2017-05-13] MEDS: POTASSIUM CHLOR 20 MEQ PREMIX 100 ML IV SCH ×2 (18:41→20:45)
[2017-05-14] VITALS (26 sets, daily range): BP systolic 122–156; BP diastolic 51–66; PULSE 64–100; RESP 17–22; TEMP 98–98.5; O2SAT 92–100
[2017-05-14] MEDS: MORPHINE SULFATE 4 MG/ML INJ IV PUSH PRN ×2 (02:05→17:58)
[2017-05-14 06:49] LABS: HEMATOCRIT 32.4 % (35.0-46.0); MEAN CORPUSCULAR HEMOGLOBIN 30.2 PG (27.0-34.0); MEAN CORPUSCULAR HGB CONC 32.8 % (32.0-36.0); PLATELET COUNT 293 TH/MM3 (150-450); RED BLOOD COUNT 3.52 MIL/MM3 (4.00-5.30); RED CELL DISTRIBUTION WIDTH 13.8 % (11.6-17.2); REVIEW FLAG FINAL; WHITE BLOOD COUNT 14.2 TH/MM3 (4.0-11.0)
[2017-05-14 07:12] LABS: BICARBONATE 35.8 MEQ/L (21.0-32.0); POTASSIUM 3.4 MEQ/L (3.5-5.1)
[2017-05-14] MEDS: D5-1/2 NS + KCL 20 MEQ INJ 1,000 ML IV SCH (08:39)
[2017-05-14] MEDS: DOCUSATE SODIUM 100 MG CAP PO SCH ×2 (08:39→21:34)
[2017-05-14] MEDS: DILTIAZEM HCL 60 MG TAB PO SCH ×4 (08:39→21:33)
[2017-05-14] MEDS: SODIUM CHLORIDE 0.9% FLUSH 10 ML FLUSH IV FLUSH SCH ×2 (08:39→21:34)
[2017-05-14] MEDS: CLOPIDOGREL 75 MG TAB PO SCH (08:39)
[2017-05-14] MEDS: oxyCODONE/ACETAMINOPHEN 5 MG/325 MG TAB PO PRN ×3 (09:43→21:34)
--- NOTE | 2017-05-14 11:28 | HHI.PR ---
Subjective Remarks Patient reports feeling weak today. Abdominal pain is controlled with pain medications. No nausea or vomiting. Objective Vitals Vital Signs Date Time Temp Pulse Resp B/P Pulse Ox O2 Delivery O2 Flow Rate FiO2 05/14/17 11:00 77 05/14/17 10:00 95 05/14/17 09:00 90 05/14/17 08:00 94 05/14/17 07:30 98.3 86 17 127/58 100 05/14/17 07:00 75 05/14/17 05:00 78 05/14/17 04:00 98.0 68 18 132/65 98 05/14/17 04:00 86 05/14/17 03:00 80 05/14/17 02:00 81 05/14/17 01:00 64 05/14/17 00:00 98.0 68 18 132/65 98 05/13/17 20:24 98.4 73 16 129/60 100 05/13/17 18:00 76 05/13/17 18:00 70 135/65 05/13/17 17:13 99 Nasal Cannula 3.00 05/13/17 17:03 17 05/13/17 17:00 69 142/65 05/13/17 17:00 93 05/13/17 16:00 75 156/70 05/13/17 16:00 84 05/13/17 15:40 84 160/74 05/13/17 15:00 98.0 85 16 160/74 99 05/13/17 15:00 80 05/13/17 14:45 74 20 153/67 92 05/13/17 14:15 75 20 165/69 92 05/13/17 14:00 97.8 84 20 176/78 84 05/13/17 12:00 72 05/13/17 11:39 97.6 75 16 142/67 98 I/O 05/13/17 05/13/17 05/13/17 05/14/17 05/14/17 05/14/17 07:00 15:00 23:00 07:00 15:00 23:00 Intake Total 240 ml 500 ml 1080 ml Output Total 800 ml 380 ml Balance -560 ml 500 ml 700 ml Intake Oral 240 ml 500 ml 240 ml IV Total 840 ml Output Urine Total 800 ml 380 ml # Voids 7 # Bowel Movements 4 Result Diagram: 05/14/1761905/14/17619 Objective Remarks GENERAL: This is a well-nourished, well-developed patient, in no apparent distress. CARDIOVASCULAR: Regular rate and rhythm without murmurs, gallops, or rubs. RESPIRATORY: Clear to auscultation. Breath sounds equal bilaterally. No wheezes , rales, or rhonchi. GASTROINTESTINAL: Abdomen soft, nondistended. Normal active bowel sounds. Mild tenderness to palpation left upper quadrant MUSCULOSKELETAL: Extremities without clubbing, cyanosis, or edema. NEURO: Alert & Oriented x4 to person, place, time, situation. Moves all ext x4 A/P Problem List: (1) Partial small bowel obstruction ICD Code: K56.69 Status: Acute Plan: No history of abdominal surgery. Resolved. Stool softener and laxatives as needed. Encourage ambulation. Advance diet as tolerated. (2) Renal artery stenosis ICD Code: I70.1 Status: Acute Plan: With malignant HTN. Patient is status post stent. Renal function and blood pressure improving. (3) Lung mass ICD Code: R91.8 Status: Acute Plan: Patient is well aware of this. She continues to decline any further workup. She is fully aware that this lesion may be cancerous. (4) HTN (hypertension) ICD Code: I10 Status: Chronic Plan: Continue diltiazem Clonidine as needed. (5) COPD (chronic obstructive pulmonary disease) ICD Code: J44.9 Status: Acute Plan: Chronic and stable. Continue breathing treatments as needed. Supplement oxygen. (6) Hypokalemia ICD Code: E87.6 Status: Resolved Plan: Replace and monitor. (7) Physical deconditioning ICD Code: R53.81 Status: Acute Plan: PT to eval Discharge Planning Okay to transfer to [facility] today. PT consult. Plan for discharge tomorrow if remains stable. Marcelo Cochran MD May 14, 2017 11:28
[2017-05-14] MEDS ORDERED: POTASSIUM CHLORIDE 10 MEQ CONTROLLED RELEASE TAB PO ONE (11:30)
[2017-05-14] MEDS: LACTULOSE SYRUP 20 GM/30 ML CUP PO PRN (16:48)
[2017-05-15] VITALS (16 sets, daily range): BP systolic 137–158; BP diastolic 54–77; PULSE 80–108; RESP 16–20; TEMP 98.2–98.9; O2SAT 96–99
[2017-05-15 04:49] LABS: HEMATOCRIT 33.7 % (35.0-46.0); MEAN CELL VOLUME 92.4 FL (80.0-100.0); MEAN CORPUSCULAR HEMOGLOBIN 30.1 PG (27.0-34.0); MEAN CORPUSCULAR HGB CONC 32.6 % (32.0-36.0); PLATELET COUNT 339 TH/MM3 (150-450); RED BLOOD COUNT 3.65 MIL/MM3 (4.00-5.30); RED CELL DISTRIBUTION WIDTH 13.9 % (11.6-17.2); REVIEW FLAG FINAL; WHITE BLOOD COUNT 16.9 TH/MM3 (4.0-11.0)
[2017-05-15 04:59] LABS: BICARBONATE 32.4 MEQ/L (21.0-32.0); POTASSIUM 4.2 MEQ/L (3.5-5.1)
[2017-05-15] MEDS ORDERED: OXYC1TAB63 PO (09:59)
[2017-05-15] MEDS ORDERED: DILT-64 PO (09:59)
[2017-05-15] MEDS ORDERED: APIX2.5T PO (09:59)
[2017-05-15] MEDS ORDERED: PLAV75TA29 PO (09:59)
[2017-05-15] MEDS ORDERED: LORA-392 PO (09:59)
[2017-05-15] MEDS ORDERED: WALKER WHEELS/F1 MIS (10:01)
--- NOTE | 2017-05-15 10:02 | HHI.DCPOC ---
Discharge Care Plan Diagnosis: (1) Partial small bowel obstruction (2) HTN (hypertension) (3) Renal artery stenosis (4) Physical deconditioning (5) Dyspnea (6) COPD (chronic obstructive pulmonary disease) Goals to Promote Your Health * To prevent worsening of your condition and complications * To maintain your health at the optimal level Directions to Meet Your Goals Take your medications as prescribed Follow your dietary instruction Follow activity as directed Keep your appointments as scheduled Take your immunizations and boosters as scheduled If your symptoms worsen call your PCP, if no PCP go to Urgent Care Center or Emergency Room Smoking is Dangerous to Your Health. Avoid second hand smoke Call the 24-hour hour crisis hotline for domestic abuse at Marcelo Cochran MD May 15, 2017 10:02
--- NOTE | 2017-05-15 10:03 | HHI.FF ---
Face to Face Verification Diagnosis: (1) Partial small bowel obstruction (2) Renal artery stenosis (3) Physical deconditioning (4) COPD (chronic obstructive pulmonary disease) (5) HTN (hypertension) (6) Anxiety (7) Lung mass (8) A-fib Physical Therapy Order: Evaluate and Treat, Improve ambulation, Strength and gait training Home Health Nursing Order: Medical education Signs/symptoms of disease process Medication education-adverse effect Nursing assessment with vital signs I have seen patient Leah Snyder on 05/15/17. My clinical findings support the need for the requested home health care services because: Patient has SOB Deconditioned w/ increased weakness Med compliance is questionable I certify that my clinical findings support that this patient is homebound because: Hx COPD- exertion dyspnea/weakness Unsteady gait/balance Marcelo Cochran MD May 15, 2017 10:03
[2017-05-15] MEDS: SODIUM CHLORIDE 0.9% FLUSH 10 ML FLUSH IV FLUSH SCH (10:05)
[2017-05-15] MEDS: CLOPIDOGREL 75 MG TAB PO SCH (10:05)
[2017-05-15] MEDS: DOCUSATE SODIUM 100 MG CAP PO SCH (10:05)
[2017-05-15] MEDS: DILTIAZEM HCL 60 MG TAB PO SCH ×2 (10:05→14:46)
--- NOTE | 2017-05-15 10:09 | HHI.DS ---
Discharge Summary Admission Date May 12, 2017 at 03:03 Discharge Date: May 15, 2017 Admitting Diagnosis partial SBO (1) Partial small bowel obstruction ICD Code: K56.69 (2) Renal artery stenosis ICD Code: I70.1 (3) Lung mass ICD Code: R91.8 (4) HTN (hypertension) ICD Code: I10 (5) COPD (chronic obstructive pulmonary disease) ICD Code: J44.9 (6) Hypokalemia ICD Code: E87.6 (7) Physical deconditioning ICD Code: R53.81 Procedures Renal artery stent placement by IR. Brief History - From Admission 67-year-old female with a medical history significant for COPD, atrial fibrillation on Eliquis, known lung mass concerning for cancer but the patient refused workup. She presented to the emergency room with complaint of left upper quadrant abdominal pain. Reports the pain started yesterday evening and has become severe. It is worse with movement. Last bowel movement was yesterday morning. She denies vomiting but reports nausea. No flatus today. She received morphine which is helping with the pain. Abdominal CT in the emergency room revealed at least partial small bowel obstruction. CBC/BMP: 05/15/17 0330 05/15/17 0330 Significant Findings Laboratory Tests Test 05/13/17 05/14/17 05/15/17 05:50 06:20 03:30 White Blood Count 16.2 TH/MM3 14.2 TH/MM3 16.9 TH/MM3 (4.0-11.0) (4.0-11.0) (4.0-11.0) Red Blood Count 3.93 MIL/MM3 3.52 MIL/MM3 3.65 MIL/MM3 (4.00-5.30) (4.00-5.30) (4.00-5.30) Neutrophils (%) (Auto) 79.9 % (16.0-70.0) Monocytes (%) (Auto) 8.2 % (0.0-8.0) Neutrophils # (Auto) 12.9 TH/MM3 (1.8-7.7) Monocytes # (Auto) 1.3 TH/MM3 (0-0.9) Potassium Level 3.0 MEQ/L 3.4 MEQ/L (3.5-5.1) (3.5-5.1) Chloride Level 94 MEQ/L 93 MEQ/L 96 MEQ/L (98-107) (98-107) (98-107) Carbon Dioxide Level 37.9 MEQ/L 35.8 MEQ/L 32.4 MEQ/L (21.0-32.0) (21.0-32.0) (21.0-32.0) Creatinine 1.38 MG/DL 1.32 MG/DL 1.37 MG/DL (0.50-1.00) (0.50-1.00) (0.50-1.00) Estimat Glomerular Filtration 38 ML/MIN (>89) 40 ML/MIN (>89) 39 ML/MIN (>89) Rate Random Glucose 149 MG/DL 147 MG/DL 143 MG/DL (74-106) (74-106) (74-106) Hemoglobin 10.6 GM/DL 11.0 GM/DL (11.6-15.3) (11.6-15.3) Hematocrit 32.4 % 33.7 % (35.0-46.0) (35.0-46.0) Mean Platelet Volume 6.8 FL (7.0-11.0) Sodium Level 132 MEQ/L (136-145) Anion Gap 3 MEQ/L (5-15) Calcium Level 7.8 MG/DL (8.5-10.1) Blood Urea Nitrogen 19 MG/DL (7-18) Imaging Last Impressions Abdomen X-Ray 05/13/17 0600 Signed Impressions: Service Date/Time: May 07:51 - CONCLUSION: Normal examination. Magdy Coe MD Renal Arteriogram 05/13/17 0000 Signed Impressions: Service Date/Time: May 12:43 - CONCLUSION: Right renal artery angioplasty and stent placement for critical right renal artery stenosis as above. Magdy Coe MD Abdomen/Pelvis CT 05/12/17 0039 Signed Impressions: Service Date/Time: Friday, May 12, 2017 01:40 - CONCLUSION: 1. Left renal cyst. 2. Hepatomegaly and steatosis. 3. Mild aneurysmal dilatation of the infrarenal abdominal aorta. 4. Severe diverticulosis without diverticulitis. 5. Dilated loops of small bowel are noted with mesenteric fluid and decompressed distal loops. This is concerning for at least partial small bowel obstruction. 6. Atrophic right kidney. Abdirizak Burns MD Chest X-Ray 05/12/17 0000 Signed Impressions: Service Date/Time: Friday, May 12, 2017 01:49 - CONCLUSION: 1. Emphysema. 2. Left lower lobe mass again noted and concerning for primary bronchogenic carcinoma until proven otherwise. Abdirizak Burns MD PE at Discharge GENERAL: This is a well-nourished, well-developed patient, in no apparent distress. CARDIOVASCULAR: Regular rate and rhythm without murmurs, gallops, or rubs. RESPIRATORY: Clear to auscultation. Breath sounds equal bilaterally. No wheezes , rales, or rhonchi. GASTROINTESTINAL: Abdomen soft, nondistended. Normal active bowel sounds. Mild tenderness to palpation left upper quadrant MUSCULOSKELETAL: Extremities without clubbing, cyanosis, or edema. NEURO: Alert & Oriented x4 to person, place, time, situation. Moves all ext x4 Pt update on day of discharge Patient reports she is feeling okay. She is requesting a walker for the home setting. She has been evaluated by physical therapy. Hospital Course 67-year-old female initially admitted for partial small bowel obstruction. The patient also had malignant hypertension and was found to have renal artery stenosis. Small bowel obstruction was treated conservatively with bowel rest, supportive care with IV fluid. Bowel obstruction resolved. She underwent right renal artery stent placement by IR. Patient to remain on Plavix. Her blood pressure much improved. Other conditions addressed include: Lung mass: Patient is well aware of this. She continues to decline any further workup. She is fully aware that this lesion may be cancerous. COPD (chronic obstructive pulmonary disease): Chronic and stable. Continue breathing treatments as needed. Supplement oxygen. Atrial Fibrillation: Continue Cardizem and Eliquis Hypokalemia: Replaced. Resolved. Physical deconditioning: Secondary to multiple comorbid conditions as above. Patient was evaluated by physical therapy. She will continue physical therapy at home. Pt Condition on Discharge: Good Discharge Disposition: Disch w/ Home Health Serv Discharge Time: > 30 minutes Discharge Instructions DIET: Follow Instructions for: Heart Healthy Diet Activities you can perform: Regular-No Restrictions New Medications: Lorazepam (Ativan) 0.5 Mg Tab 0.5 MG PO Q8H PRN ANXIETY AND/OR AGITATION #15 Ref 0 TAB Walker with Front Wheels (Walker with Front Wheels) 1 Mis Mis 1 EA .ROUTE DIRECTED #1 Ref 0 EA Clopidogrel (Plavix) 75 Mg Tab 75 MG PO DAILY #30 TAB Oxycodone-Acetaminophen (Oxycodone-Acetaminophen) 5-325 mg Tab 1 TAB PO Q4H PRN PAIN GREATER THAN 5 #20 TAB Changed Medications: Diltiazem CD 24 HR (Diltiazem CD 24 HR) 240 Mg Caper 240 MG PO DAILY #30 Ref 0 CAP (Changed from: Diltiazem 60 Mg Tab 60 Mg PO QID # 120 TAB Ref 0) Continued Medications: Albuterol 18 GM Inh (Ventolin Hfa 18 GM Inh) 90 Mcg/Act Aer 2 PUFF INH Q4-6H PRN SHORTNESS OF BREATH #1 INHALER Apixaban (Eliquis) 2.5 Mg Tab 2.5 MG PO BID Blood Clot Prevention #60 Ref 0 TAB (This prescription has been renewed) Marcelo Cochran MD May 15, 2017 10:09
[2017-05-15] MEDS ORDERED: diphenhydrAMINE HCL 25 MG CAP PO PRN (11:00)
[2017-05-15] MEDS: oxyCODONE/ACETAMINOPHEN 5 MG/325 MG TAB PO PRN ×2 (11:14→14:45)
== END 2017-05-15 16:46 | disposition home or self-care (01) | DRG 357 ==
LOC: NEPC 00:17 → NEDA 02:37 → OBSVTOIN 03:03 → NEDA 10:11 → HCIS 18:46
PROVIDERS: ADMIT Family Medicine; ATTEND Family Medicine
PROC: 04793DZ Dilation of Right Renal Artery with Intraluminal Device, Percutaneous Approach (ICD-10-PCS; principal; 2017-05-13)
DX: K56.60 Unspecified intestinal obstruction (principal); C34.32 Malignant neoplasm of lower lobe, left bronchus or lung; Z99.81 Dependence on supplemental oxygen; K76.0 Fatty (change of) liver, not elsewhere classified; J44.9 Chronic obstructive pulmonary disease, unspecified; K21.9 Gastro-esophageal reflux disease without esophagitis; I10 Essential (primary) hypertension; I70.1 Atherosclerosis of renal artery; I48.0 Paroxysmal atrial fibrillation; E87.6 Hypokalemia; H91.90 Unspecified hearing loss, unspecified ear; I16.0 Hypertensive urgency; Z79.01 Long term (current) use of anticoagulants; Z87.891 Personal history of nicotine dependence
CPT/HCPCS: 36251; 37236; 71010; 74000; 74177; 76937; 80048; 80053; 81001; 82550; 83605; 83690; 84484; 85025; 85027; 85610; 85730; 93005; 96374; 96376; 99152; 99153; C1760; C1769; C1874; C1887; C1894; G0269; J0171; J0360; J0461; J0690; J1644; J2250; J2270; J2405; J3010; J3480; J7030; Q9967